=== PATIENT | male | born 1975 | race Caucasian/White ===

== ENCOUNTER 2017-10-04 08:58 | Emergency (ER) | payer OTHER ==
[~2017-10-04] VITALS: Ht 177.8 cm; Wt 68.0 kg
[~2017-10-04 08:58] MED LIST: ALEVE220 M1 PO; ASPIRIN EC325 MG PO; CEPHALEXIN500 MG PO; CHLORHEXIDINE473 ML PO; CYCLOBENZAPRINE10 MG PO; EXCEDRIN MIGRA1 EACH; IBUPROFEN600 MG PO; NO MEDICATIONS; NORCO 5-325 TA1 EACH PO; ROBAXIN-750750 MG PO
[2017-10-04] MEDS ORDERED: TYLENOL EXTRA500 MG PO (09:10)
== END 2017-10-04 09:13 | disposition home or self-care (01) ==
LOC: ED 08:58
DX: M79.604 Pain in right leg (principal); M79.1 Myalgia; M25.551 Pain in right hip

== ENCOUNTER 2019-08-28 21:50 | Emergency (ER) | payer OTHER ==
[~2019-08-28] VITALS: Ht 177.8 cm; Wt 63.5 kg
[~2019-08-28 21:50] MED LIST changes: +IBU400 MG PO; +TRAMADOL HCL50 MG PO; +TYLENOL EXTRA500 MG PO
--- OUTSIDE RECORDS SUMMARY | 2019-08-28 21:54 | XMS ---
PreManage Notification: JUAN JOSE Security Blind Cleaner Events No recent Security Events currently on file CRITERIA MET - Group Notification CARE PROVIDERS There are no care providers on record at this time. Jefe has no Care Guidelines for this patient. Bryson VISIT COUNT (12 MO.) 2 ALYSSA Retana TOTAL 2 NOTE: Visits indicate total known visits. ED/C VISIT TRACKING (12 MO.) 08/28/2019 21:51 ALYSSA Mcdonald [place] TYPE: Emergency COMPLAINT: - RIGHT LEG PAIN 02/20/2019 21:02 ALYSSA Mcdonald [place] TYPE: Emergency COMPLAINT: - LOW BACK PAIN, NO INJURY DIAGNOSES: - Sciatica, right side - Dorsalgia, unspecified - Nicotine dependence, unspecified, uncomplicated - Allergy status to narcotic agent status INPATIENT VISIT TRACKING (12 MO.) No inpatient visits to display in this time frame [email or web address]
[2019-08-28] MEDS ORDERED: VITAMIN B125000 MCG PO (21:58)
[2019-08-28] MEDS ORDERED: PREDNISONE20 MG PO (23:06)
== END 2019-08-28 23:22 | disposition home or self-care (01) ==
LOC: ED 21:50
DX: M54.31 Sciatica, right side (principal); F31.9 Bipolar disorder, unspecified; F17.200 Nicotine dependence, unspecified, uncomplicated; Z88.5 Allergy status to narcotic agent; Z79.899 Other long term (current) drug therapy
CPT/HCPCS: 72100; 73502; 96372; 99283-25; J1885; J7512

== ENCOUNTER 2019-09-05 11:37 | Emergency (ER) | payer OTHER ==
[~2019-09-05] VITALS: Ht 177.8 cm; Wt 63.5 kg
[~2019-09-05 11:37] MED LIST changes: +PREDNISONE20 MG PO; +VITAMIN B125000 MCG PO
--- OUTSIDE RECORDS SUMMARY | 2019-09-05 11:40 | XMS ---
PreManage Notification: JUAN JOSE Security Property Management Coordinator Events No recent Security Events currently on file CRITERIA MET - [facility] - 2 Visits in 30 Days CARE PROVIDERS RYAN GREY [facility] 08/29/2019-Current PHONE: [phone] Jefe has no Care Guidelines for this patient. Bryson VISIT COUNT (12 MO.) 3 [facility] TOTAL 3 NOTE: Visits indicate total known visits. ED/UCC VISIT TRACKING (12 MO.) 09/05/2019 11:38 ALYSSA Mcdonald [place] TYPE: Emergency COMPLAINT: - BACK PAIN, URINE PROBLEM 08/28/2019 21:51 ALYSSA Mcdonald [place] TYPE: Emergency COMPLAINT: - RIGHT LEG PAIN DIAGNOSES: - Sciatica, right side - Other residential (current) drug therapy - Bipolar disorder, unspecified - Nicotine dependence, unspecified, uncomplicated - Allergy status to narcotic agent status - Pain in right leg 02/20/2019 21:02 ALYSSA Mcdonald [place] TYPE: Emergency COMPLAINT: - LOW BACK PAIN, NO INJURY DIAGNOSES: - Sciatica, right side - Dorsalgia, unspecified - Nicotine dependence, unspecified, uncomplicated - Allergy status to narcotic agent status INPATIENT VISIT TRACKING (12 MO.) No inpatient visits to display in this time frame [email or web address]
[2019-09-05] MEDS ORDERED: NORCO 7.5-3251 EACH PO (17:17)
[2019-09-05] MEDS ORDERED: METHYLPREDNISOLO4 M1 PO (17:17)
== END 2019-09-05 17:28 | disposition home or self-care (01) ==
LOC: ED 11:37
DX: M51.27 Other intervertebral disc displacement, lumbosacral region (principal); F17.200 Nicotine dependence, unspecified, uncomplicated; Z88.5 Allergy status to narcotic agent
CPT/HCPCS: 72148; 96372; 99283-25; J1885

== ENCOUNTER 2019-11-06 06:06 | Emergency (ER) | payer OTHER ==
[~2019-11-06] VITALS: Ht 177.8 cm; Wt 63.5 kg
[~2019-11-06 06:06] MED LIST changes: +METHYLPREDNISOLO4 M1 PO; +NORCO 7.5-3251 EACH PO
== END 2019-11-06 06:44 | disposition home or self-care (01) ==
LOC: ED 06:06
DX: S60.221A Contusion of right hand, initial encounter (principal); F17.200 Nicotine dependence, unspecified, uncomplicated; Z88.5 Allergy status to narcotic agent; Z79.899 Other long term (current) drug therapy; X58.XXXA Exposure to other specified factors, initial encounter
CPT/HCPCS: 73130; 99283-25

== ENCOUNTER 2019-12-07 02:40 | Emergency (ER) | payer OTHER ==
[~2019-12-07] VITALS: Ht 177.8 cm; Wt 63.5 kg
--- OUTSIDE RECORDS SUMMARY | ~2019-12-07 | XMS | Encounter Summary ---
Demographics + + + | Address | [address] | | | [place] [address] | + + + | Home Phone | | + + + | Preferred Language | Unknown | + + + | Marital Status | Single | + + + | Adventist Affiliation | Unknown | + + + | Race | Unknown | + + + | Ethnic Group | Unknown | + + + Author + + + | Author | [facility] | | | and [place] | + + + | Organization | [facility] | | | and [place] | + + + | Address | Unknown | + + + | Phone | Unavailable | + + + Support + + +---------+ + | Name | Relationship | Address | Phone | + + +---------+ + | Oliva Diaz | MATT | Unknown | | + + +---------+ + Care Team Providers + +------+ + | Care Belt Sewer Name | Role | Phone | + +------+ + | Omar Oswald MD | PCP | | + +------+ + Reason for Visit + + + | Reason | Comments | + + + | Medication Question | Pain | + + + Encounter Details +--------+ + + + + | Date | Type | Department | Care Team | Description | +--------+ + + + + | // | Telephone | [facility] | Francisco Cannon DO | Medication Question | | 2020 | | NEUROSURGERY [address] | [address] | (Pain) | | | | [address] | [address] | | | | | [place], [place] | [place] [address] | | | | | [address] | [phone] | | | | | [phone] | | | +--------+ + + + + Social History + +-------+ +--------+------+ | Tobacco Use | Types | Packs/Day | Years | Date | | | | | Used | | + +-------+ +--------+------+ | Current Every Day | | 0.5 | | | | Smoker | | | | | + +-------+ +--------+------+ + +---+---+---+ | Smokeless Tobacco: | | | | | Former User | | | | + +---+---+---+ + + + | Sex Assigned at | Date Recorded | | | | + + + | Not on file | | + + + + + + + | Job Start Date | Occupation | Industry | + + + + | Not on file | Not on file | Not on file | + + + + + + + + | Travel History | Travel Start | Travel End | + + + + + + | No recent travel history available. | + + documented as of this encounter Plan of Treatment +--------+ + + + + | Date | Type | Specialty | Care Team | Description | +--------+ + + + + | 12/23/ | Virtual | Neurosurgery | Rowdy Gutierrez, | | | 2019 | Office | | TEMI [address]AVEZ | | | | Visit | | [address] | | | | | | [place] [address] | | | | | | [phone] | | | | | | | | +--------+ + + + + documented as of this encounter Visit Diagnoses Not on filedocumented in this encounter"
--- OUTSIDE RECORDS SUMMARY | ~2019-12-07 | XMS | Encounter Summary ---
Demographics + + + | Address | [address] | | | [place] [address] | + + + | Home Phone | | + + + | Preferred Language | Unknown | + + + | Marital Status | Single | + + + | Rastafarian Affiliation | Unknown | + + + | Race | Unknown | + + + | Ethnic Group | Unknown | + + + Author + + + | Author | [facility] | | | and [place] | + + + | Organization | [facility] | | | and [...] Team Providers + +------+ + | Care Antique Automobiles Repairer Name | Role | Phone | + +------+ + | Omar Oswald MD | PCP | | + +------+ + Encounter Details +--------+ + + + + | Date | Type | Department | Care Team | Description | +--------+ + + + + | 09/18/ | Clinical | [facility] | | DDD (degenerative | | 2020 | Support | NEUROSURGERY [address] | | disc disease), | | | | [address] | | lumbar; Lumbar disc | | | | [place], [place] | | herniation with | | | | [address] | | radiculopathy; | | | | [phone] | | Lumbar facet | | | | | | arthropathy; Lumbar | | | | | | myelopathy (HCC); | | | | | | Progressive | | | | | | neurological | | | | | | deficit; Weakness of | | | | | | lower extremity, | | | | | | unspecified | | | | | | laterality | +--------+ + + + + Social [...] + + documented as of this encounter Last Filed Vital Signs + +---------+ + + | Vital Sign | Reading | Time Taken | Comments | + +---------+ + + | Blood Pressure | 141/106 | 09/19/2019 2:33 PM | | | | | PST | | + +---------+ + + | Pulse | 84 | 09/19/2019 2:33 PM | | | | | PST | | + +---------+ + + | Temperature | - | - | | + +---------+ + + | Respiratory Rate | - | - | | + +---------+ + + | Oxygen Saturation | - | - | | + +---------+ + + | Inhaled Oxygen | - | - | | | Concentration | | | | + +---------+ + + | Weight | - | - | | + +---------+ + + | Height | - | - | | + +---------+ + + | Body Mass Index | - | - | | + +---------+ + + documented in this encounter Patient Instructions Patient Instructions Leti Montes RN - 09/19/2019 2:15 PM PSTPreOp Instructions: -Discontinue aspirin, coumadin, heparin, etc 5-7 days before surgery -Discontinue any NSAIDs, such as ibuprofen and aleve 5-7 days before surgery. -Take prescribed medications as directed for pain management. -Don't bend, twist, or lift anything greater than 5-10 lbs. -Take pain medication and muscle relaxer 1 hour apart, taking together increases drowsiness which increases risk of falls. -Reminder to go to pre-op appt at hospital, and take consent form. If you have any questions or concerns feel free to call us at [phone]. documented in this encounter Progress Notes Leti Montes RN - 09/19/2019 2:15 PM PSTPatient presents for pre-op visit re: their sc heduled MIS laminectomy, medial facetectomy, foraminotomy, possible microdiscectomy L5-S1, p ossible adjacent levels, right sided approach on 09/27/19. Patient reports pre-op symptoms of chronic back pain that now radiates down right S1 dermatomal region with right foot weaknes s. Surgical informed consent signed by patient and witnessed per Dr. Cannon's instructions. Patient and father present for this appointment. Pre-op and post-op instructions reviewed t o include: activity and restrictions, medications - stop NSAID's on 09/20/19, may resume 1 we ek post-op, diet - increase fluids and fiber intake, post-op wound care, when to call the do ctor. Advised patient to take pain medication and muscle relaxer 1 hour apart, taking togeth er increases drowsiness and risk of falls. Questions were addressed, patient and father adrien balized understanding of given instruction. Patient was sent to [facility] for their scheduled pre-admit appointment, anesthesia consult, lab draw, EKG and chest xray. Orders entered per Dr. Cannon's preference and hospital guideline s. Patient was given an appointment reminder for their first post-op visit on 10/11/19 @ 1300 a nd instructed to call in the interim with any problems or concerns. documented in this encounter Plan of Treatment +--------+ + + + + | Date | Type | Specialty | Care Team | Description | +--------+ + + + + | 12/23/ | Virtual | Neurosurgery | Rowdy Gutierrez, | | 2019 | Office | | LICENSED LIFE AND HEALTH AGENT [address] | | | | Visit | | [address] | | | | | | [place] [address] | | | | | | [phone] | | | | | | | | +--------+ + + + + documented as of this encounter Visit Diagnoses + + | Diagnosis | + + | DDD (degenerative disc disease), lumbar Degeneration of lumbar or lumbosacral | | intervertebral disc | + + | Lumbar disc herniation with radiculopathy Displacement of lumbar intervertebral disc | | without myelopathy | + + | Lumbar facet arthropathy Lumbosacral spondylosis without myelopathy | + + | Lumbar myelopathy (HCC) Spondylosis with myelopathy, lumbar region | + + | Progressive neurological deficit Other symptoms involving nervous and musculoskeletal | | systems | + + | Weakness of lower extremity, unspecified laterality | + + documented in this encounter"
--- OUTSIDE RECORDS SUMMARY | ~2019-12-07 | XMS | Encounter Summary ---
Demographics + + + | Address | [address] | | | [place] [address] | + + + | Home Phone | | + + + | Preferred Language | Unknown | + + + | Marital Status | Single | + + + | Alevism Affiliation | Unknown | + + + | Race | Unknown | + + + | Ethnic Group | Unknown | + + + Author + + + | Author | [facility] | | | and [place] | + + + | Organization | [facility] | | | and [place] [...] Team Providers + +------+ + | Care Survey Superintendent Name | Role | Phone | + +------+ + PCP | Unavailable | + +------+ + Encounter Details +--------+ + + + + | Date | Type | Department | Care Team | Description | +--------+ + + + + | 02/11/ | Hospital | [facility] | Amy Baeza MD | | | 2008 | Encounter | [facility] | [address] | | | | | [place] [address] | [place], [place] | | | | | [address] | [address] | | | | | [place] | | | | | | [address] | | | | | | [phone] | | | +--------+ + + + + Social History + +-------+ +--------+------+ | Tobacco Use | Types | Packs/Day | Years | Date | | | | | Used | | + +-------+ +--------+------+ | Never Assessed | | | | | + +-------+ +--------+------+ + + + | Sex Assigned at [...] B | | | | | | [place] [address] | | | | | | [phone] | | | | | | | | +--------+ + + + + documented as of this encounter Visit Diagnoses Not on filedocumented in this encounter"
--- OUTSIDE RECORDS SUMMARY | ~2019-12-07 | XMS | Encounter Summary ---
Demographics + + + | Address | [address] | | | [place] [address] | + + + | Home Phone | | + + + | Preferred Language | Unknown | + + + | Marital Status | Single | + + + | Sikh Affiliation | Unknown | + + + | Race | Unknown | + + + | Ethnic Group | Unknown | + + + Author + + + | Author | [facility] | | | and [place] | + + + | Organization | [facility] | | | and [place] | [...] Team Providers + +------+ + | Care Manager Contact Name | Role | Phone | + +------+ + PCP | Unavailable | + +------+ + Encounter Details +--------+ + + + + | Date | Type | Department | Care Team | Description | +--------+ + + + + | 01/30/ | Hospital | [facility] | Wicho Maharaj MD | | | 2003 | Encounter | [facility] | [address] [facility] | | | | | EMERGENCY CENTER | [place], [place] | | | | | [address] | [address] | | | | | [place], [place] | [phone] | | | | | [address] | | | | | | [phone] | | | +--------+ + + + [...] B | | | | | | [place] [address] | | | | | | [phone] | | | | | | | | +--------+ + + + + documented as of this encounter Visit Diagnoses Not on filedocumented in this encounter"
--- OUTSIDE RECORDS SUMMARY | ~2019-12-07 | XMS | Encounter Summary ---
Demographics + + + | Address | [address] | | | [place] [address] | + + + | Home Phone | | + + + | Preferred Language | Unknown | + + + | Marital Status | Single | + + + | Bahai Affiliation | Unknown | + + + | Race | Unknown | + + + | Ethnic Group | Unknown | + + + Author + + + | Author | [facility] | | | and [place] | + + + | Organization | [facility] | | | and [place] [...] Team Providers + +------+ + | Care Tube Washer Name | Role | Phone | + +------+ + | Omar Oswald MD | PCP | | + +------+ + Reason for Visit +---------+ + | Reason | Comments | +---------+ + | Post-Op | post op #1 | +---------+ + Surgery OP (Routine) + +--------+ + + + + | Status | Reason | Specialty | Diagnoses / | Referred By | Referred To | | | | | Procedures | Contact | Contact | + +--------+ + + + + | Authorized | | Neurosurgery | Diagnoses | [place], | [place], | | | | | Other | Francisco, DO | DO Francisco | | | | | intervertebr | [address] | | | | | al disc | [address] | [address] | | | | | degeneration | [address]IVE [address] | [address] | | | | | , lumbar | B | [place], [place] | | | | | region | [place], | [address] | | | | | | [place] [address] | Phone: | | | | | | Phone: | [phone] | | | | | | [phone] | Fax: | | | | | | Fax: | [phone] | | | | | | [phone] | | + +--------+ + + + + Encounter Details +--------+ + + + + | Date | Type | Department | Care Team | Description | +--------+ + + + + | 10/10/ | Virtual | [facility] | Rowdy Gutierrez, | Status post | | 2020 | Office | NEUROSURGERY [address] | NETWORK TECHNICAL ANALYST [address] | laminectomy (Primary | | | Visit | [address] | [address] | Dx); DDD | | | | [place], [place] | [place] [address] | (degenerative disc | | | | [address] | [phone] | disease), lumbar; | | | | [phone] | | Lumbar disc | | | | | | herniation with | | | | | | radiculopathy; | | | | | | Lumbar facet | | | | | | arthropathy | +--------+ + + + + Social History + + + +--------+------+ | Tobacco Use | Types | Packs/Day | Years | Date | | | | | Used | | + + + +--------+------+ | Current Every Day | Cigarettes | 0.5 | | | | Smoker | | | | | + + + +--------+------+ + +---+---+---+ | Smokeless Tobacco: | | | | | Former User | | | | + +---+---+---+ + + +---------+ + | Alcohol Use | Drinks/Week | oz/Week | Comments | + + +---------+ + | Yes | 2 Cans of beer 0 | 2.0 | | | | Glasses of wine 0 | | | | | Shots of liquor | | | + + +---------+ + + + + | Sex Assigned at [...] this encounter Last Filed Vital Signs + + + + + | Vital Sign | Reading | Time Taken | Comments | + + + + + | Blood Pressure | - | - | | + + + + + | Pulse | - | - | | + + + + + | Temperature | - | - | | + + + + + | Respiratory Rate | - | - | | + + + + + | Oxygen Saturation | - | - | | + + + + + | Inhaled Oxygen | - | - | | | Concentration | | | | + + + + + | Weight | 62.1 kg (137 lb) | 10/11/2019 1:02 PM | | | | | PDT | | + + + + + | Height | 175.3 cm (5' 9") | 10/11/2019 1:02 PM | | | | | PDT | | + + + + + | Body Mass Index | 20.23 | 10/11/2019 1:02 PM | | | | | PDT | | + + + + + documented in this encounter Progress Notes Rowdy Gutierrez ARNP - 10/11/2019 1:00 PM PDTThis exam was initially conducted via a secu re telephonic session. Service was provided telephone visit start time 1:04 PM end time 1:14 PM Total time (in minutes) including non [id number]-cr-[id number] time (reviewing records, documentation, etc..) 15 minutes You have chosen to receive care through the use of telemedicine. Telemedicine enables [facility] care providers at different locations to provide safe, effective and convenient care throu gh the use of technology. As with any health care service, there are risks associated with t he use of telemedicine, including equipment failure, poor image resolution and information s ecurity issues. Do you understand the risks and benefits of telemedicine as I have explained them to you? " Yes" Have your questions regarding telemedicine been answered? "Yes" Patient is currently at home Do you consent to the use of telemedicine in your medical care today? Yes. Answer: Patient confirms they are located in a state where Rowdy Galarza ARNP is lice nsed. Neurosurgery: Post Operative Visit Subjective: The patient is here for their first postoperative appointment. The patient is S/P LAMINECT LALIT MINIMALLY INVASIVE L5/S1 Minimally invasive lumbar laminectomy, medial facetectomy, fora minotomy and possible microdiskectomy at Lumbar 5 to Sacral 1. right sided approach for bila teral decompression done on 09/27/[address] Cannon. The patient reports no wound problems or fevers. The preoperative symptoms are improved. He reports that the pain that was previously radiating down the right leg is now gone. He d enies any numbness/tingling over the lower extremities at this time. Pain is currently 3/10 . He is trying to walk a little more now and is now walking outside the house. Using pain medications?: Yes, hydrocodone 10-325 mg, once a day. Refills needed?: No Objective: Deferred in place of telephone visit. Imaging: I reviewed both the imaging studies and the available radiology reports No new imaging to review Assessment/Plan: S/P LAMINECTOMY MINIMALLY INVASIVE L5/S1 Minimally invasive lumbar laminectomy, medial face tectomy, foraminotomy and possible microdiskectomy at Lumbar 5 to Sacral 1. right sided appr oac for bilateral decompression done on 09/27/[address] Cannon, doing well. - We discussed postop restrictions including lifting and activity. - The patient reports no swelling, redness or new drainage over the incision site - The patient will follow up in 4 weeks without xrays. We can change this visit to a virtu al visit if COVID-19 concerns are still significant at that time. - The patient was given an appointment reminder. - The patient was reminded to contact the office in the interim if there are any problems o r concerns. TEMI Clarke CC: MD Rowdy Lin ARNP has created this entry using [employer] Recognition [employer] e and [employer] macros. The entry has been reviewed and there may still exist sound alike word e rrors. documented in this encounter Plan of Treatment +--------+ + + + + | Date | Type | Specialty | Care Team | Description | +--------+ + + + + | 12/23/ | Virtual | Neurosurgery | Rowdy Gutierrez, | | | 2019 | Office | | NETWORK TECHNICAL ANALYST [address] | | | | Visit | | [address] | | | | | | [place] [address] | | | | | | [phone] | | | | | | | | +--------+ + + + + documented as of this encounter Visit Diagnoses + + | Diagnosis | + + | Status post laminectomy - Primary Other postprocedural status | + + | DDD (degenerative disc disease), lumbar Degeneration of lumbar or lumbosacral | | intervertebral disc | + + | Lumbar disc herniation with radiculopathy Displacement of lumbar intervertebral disc | | without myelopathy | + + | Lumbar facet arthropathy Lumbosacral spondylosis without myelopathy | + + documented in this encounter
--- OUTSIDE RECORDS SUMMARY | ~2019-12-07 | XMS | Encounter Summary ---
Demographics + + + | Address | [address] | | | [place] [address] | + + + | Home Phone | | + + + | Preferred Language | Unknown | + + + | Marital Status | Single | + + + | Jain Affiliation | Unknown | + + + | Race | Unknown | + + + | Ethnic Group | Unknown | + + + Author + + + | Author | [facility] | | | and [place] | + + + | Organization | [facility] | | | and [place] | [...] Team Providers + +------+ + | Care Shoe Repair Supervisor Name | Role | Phone | + +------+ + | Omar Oswald MD | PCP | | + +------+ + Reason for Visit +--------+ + | Reason | Comments | +--------+ + | Other | schedule | +--------+ + Encounter Details +--------+ + + + + | Date | Type | Department | Care Team | Description | +--------+ + + + + | 11/11/ | Telephone | [facility] | Rowdy Gutierrez, | Other (schedule ) | | 2020 | | NEUROSURGERY [address] | REGISTERED DENTAL ASSISTANT [address]DA [address] | | | | | [address] | [address] | | | | | [place], [place] | [place] [address] | | | | | [address] | [phone] | | | | | [phone] | | | +--------+ + + + [...] | | | Visit | | [address] | | | | | | [place] [address] | | | | | | [phone] | | | | | | | | +--------+ + + + + documented as of this encounter Visit Diagnoses Not on filedocumented in this encounter"
--- OUTSIDE RECORDS SUMMARY | ~2019-12-07 | XMS | Encounter Summary ---
Demographics + + + | Address | [address] | | | [place] [address] | + + + | Home Phone | | + + + | Preferred Language | Unknown | + + + | Marital Status | Single | + + + | Shinto Affiliation | Unknown | + + + | Race | Unknown | + + + | Ethnic Group | Unknown | + + + Author + + + | Author | [facility] | | | and [place] | + + + | Organization | [facility] | | | and [...] Team Providers + +------+ + | Care Retail Store Manager Name | Role | Phone | + +------+ + | Omar Oswald MD | PCP | | + +------+ + Reason for Visit + + + | Reason | Comments | + + + | Appointment | Question | + + + Encounter Details +--------+ + + + + | Date | Type | Department | Care Team | Description | +--------+ + + + + | 03/23/ | Telephone | [facility] | Rowdy Gutierrez, | Appointment | | 2020 | | NEUROSURGERY [address] | COMPRESSED GASES TESTER [address] | (Question) | | | | [address] | [address] | | | | | [place], [place] | [place] [address] | | | | | [address] | [phone] | | | | | [phone] | | | +--------+ + + + [...] | 2019 | Office | | TEMI [address] | | | | Visit | | [address] | | | | | | [place] [address] | | | | | | [phone] | | | | | | | | +--------+ + + + + documented as of this encounter Visit Diagnoses Not on filedocumented in this encounter"
--- OUTSIDE RECORDS SUMMARY | ~2019-12-07 | XMS | Encounter Summary ---
Demographics + + + | Address | [address] | | | [place] [address] | + + + | Home Phone | | + + + | Preferred Language | Unknown | + + + | Marital Status | Single | + + + | Moravian Affiliation | Unknown | + + + | Race | Unknown | + + + | Ethnic Group | Unknown | + + + Author + + + | Author | [facility] | | | and [place] | + + + | Organization | [facility] [...] Team Providers + +------+ + | Care Nurse Obgyn Name | Role | Phone | + +------+ + | Omar Oswald MD | PCP | | + +------+ + Reason for Visit +---------+ + | Reason | Comments | +---------+ + | Post-Op | MIS LAMI post op #2 | +---------+ + Surgery OP (Routine) + +--------+ + + + + | Status | Reason | Specialty | Diagnoses / | Referred By | Referred To | | | | | Procedures | Contact | Contact | + +--------+ + + + + | Authorized | | Neurosurgery | Diagnoses | K[place], | [place], | | | | | Other | Francisco, DO | Francisco, DO | | | | | intervertebr | [address] | | | | | al disc | [address] | [address] | | | | | degeneration | DRIVE SU[address] | B | | | | | , lumbar | B | [place], [place] | | | | | region | [place], | [address] | | | | | | [place] [address] | Phone: | | | | | | Phone: | [phone] | | | | | | [phone] | Fax: | | | | | | Fax: | [phone] | | | | | | [phone] | | + +--------+ + + + + Encounter Details +--------+ + + + + | Date | Type | Department | Care Team | Description | +--------+ + + + + | 04/27/ | Virtual | [facility] | Hira Gutierrezgladis Hutchison, | Status post | | 2020 | Office | NEUROSURGERY [address] | SPECIAL SYSTEMS TECHNICIAN [address] | laminectomy (Primary | | | Visit | [address] | [address] | Dx); DDD | | | | [place], [place] | [place] [address] | (degenerative disc | | | | [address] | [phone] | disease), lumbar | | | | [phone] | | | +--------+ + + + [...] + + documented as of this encounter Progress Notes Rowdy Gutierrez, SPECIAL SYSTEMS TECHNICIAN - 11/12/2019 2:40 PM PDTThis exam was initially conducted via a [email or web address] 256-bit AES encrypted bidirectional video session. Service was provided [id number] with the patient via interactive videoconferencing Video start time 1:49 PM Video end time 2:04 PM Total time (in minutes) including non [id number] time (reviewing records, documentation, etc..) 15 minutes You have chosen to receive care through the use of telemedicine. Telemedicine enables premier health care providers at different locations to provide [...] your questions regarding telemedicine been answered? "Yes" Participant is currently at {Participant's location home Do you consent to the use of telemedicine in your medical care today? Yes. Last question, I need to confirm where are you physically located right now? [place], [place] Answer: Patient confirms they are located in a state where I, Rowdy C. Matt, SPECIAL SYSTEMS TECHNICIAN am lic ensed. Neurosurgery: Post Operative Visit Subjective: The patient is here for their second postoperative appointment. The patient is S/P LAMINEC ROSALVA MINIMALLY INVASIVE L5/S1 Minimally invasive lumbar laminectomy, medial facetectomy, for aminotomy and possible microdiskectomy at Lumbar 5 to Sacral 1. right sided approach for roel ateral decompression done on 09/27/[address] Cannon. The patient reports no wound problems or fevers. The preoperative symptoms are improved. He reports that the pain that was previously radiating down the right leg is now gone. He d enies any numbness/tingling over the lower extremities at this time. He has been using his chain saw with little pain. Pain is currently 5/10. He is trying to walk a little more now and is now walking outside the house. Using pain medications?: Yes, hydrocodone 10-325 mg, once a day. Refills needed?: No Objective: General Cooperative Alert Well groomed Well appearing Resp Respiratory effort Skin Incision is healing nicely. No redness, swelling or new drainage. Neuro Oriented x3 Psych Normal speech Normal Cognition Thought content normal Normal judgement Imaging: I reviewed both the imaging studies and the available radiology reports No new imaging to review Assessment/Plan: S/P LAMINECTOMY MINIMALLY INVASIVE L5/S1 Minimally invasive lumbar laminectomy, medial face tectomy, foraminotomy and possible microdiskectomy at Lumbar 5 to Sacral 1. right sided appr oach for bilateral decompression done on 09/27/[address] Cannon, doing well. - We discussed postop restrictions including slowly increasing lifting and activity. He wa s instructed to only do age appropriate activities. - The patient has no swelling, redness or new drainage over the incision site - The patient will follow up in 6 weeks without xrays. We can change this visit to a virtu al visit if COVID-19 concerns are still significant at that time. - The patient was given an appointment reminder. - The patient was reminded to contact the office in the interim if there are any problems o r concerns. TEMI Clarke CC: MD Rowdy Lin ARNP has created this entry using [employer] and [employer] macros. The entry has been reviewed and there may still exist sound alike word e rrcynthia. documented in this encounter Plan of Treatment +--------+ + + + + | Date | Type | Specialty | Care Team | Description | +--------+ + + + + | 12/23/ | Virtual | Neurosurgery | Rowdy Gutierrez, | | | 2019 | Office | | TEMI [address] | | | | Visit | | [facility] | | | | | | [place] [address] | | | | | | [phone] | | | | | | | | +--------+ + + + + documented as of this encounter Visit Diagnoses + + | Diagnosis | + + | Status post laminectomy - Primary Other postprocedural status | + + | DDD (degenerative disc disease), lumbar Degeneration of lumbar or lumbosacral | | intervertebral disc | + + documented in this encounter
--- OUTSIDE RECORDS SUMMARY | ~2019-12-07 | XMS | Encounter Summary ---
Demographics + + + | Address | [address] | | | [place] [address] | + + + | Home Phone | | + + + | Preferred Language | Unknown | + + + | Marital Status | Single | + + + | Jehovah'S Witness Affiliation | Unknown | + + + | Race | Unknown | + + + | Ethnic Group | Unknown | + + + Author + + + | Author | [facility] | | | and [place] | + + + | Organization | [facility] | | | and [place] [...] Team Providers + +------+ + | Care Fairing Man Name | Role | Phone | + +------+ + | Omar Oswald MD | PCP | | + +------+ + Reason for Visit + + + | Reason | Comments | + + + | Appointment | | + + + Encounter Details +--------+ + + + + | Date | Type | Department | Care Team | Description | +--------+ + + + + | 09/11/ | Telephone | [facility] | Francisco Cannon | Appointment | | 2020 | | NEUROSURGERY [address] | [address] | | | | | [address] | [address] | | | | | [place], [place] | [place] [address] | | | | | [address] | [phone] | | | | | [phone] | | | +--------+ + + + [...] B | | | | | | [place] [address] | | | | | | [phone] | | | | | | | | +--------+ + + + + documented as of this encounter Visit Diagnoses Not on filedocumented in this encounter"
--- OUTSIDE RECORDS SUMMARY | ~2019-12-07 | XMS | Encounter Summary ---
Demographics + + + | Address | [address] | | | [place] [address] | + + + | Home Phone | | + + + | Preferred Language | Unknown | + + + | Marital Status | Single | + + + | Sabianism Affiliation | Unknown | + + + | Race | Unknown | + + + | Ethnic Group | Unknown | + + + Author + + + | Author | [facility] | | | and [place] | + + + | Organization | [facility] | | | and [place] [...] Team Providers + +------+ + | Care Correctional Officer Captain Name | Role | Phone | + +------+ + | Omar Oswald MD | PCP | | + +------+ + Reason for Visit Auth/Cert +--------+--------+ + + + + | Status | Reason | Specialty | Diagnoses / | Referred By | Referred To | | | | | Procedures | Contact | Contact | +--------+--------+ + + + + | | | | Diagnoses | | | | | | | DDD | | | | | | | (degenerativ | | | | | | | e disc | | | | | | | disease), | | | | | | | lumbar | | | | | | | Lumbar disc | | | | | | | herniation | | | | | | | with | | | | | | | radiculopath | | | | | | | y Lumbar | | | | | | | facet | | | | | | | arthropathy | | | | | | | Weakness of | | | | | | | lower | | | | | | | extremity, | | | | | | | unspecified | | | | | | | laterality | | | | | | | Lumbar | | | | | | | myelopathy | | | | | | | ([facility]) | | | | | | | Progressive | | | | | | | neurological | | | | | | | deficit | | | | | | | | | | | | | | Procedures | | | | | | | LAMINECTOMY | | | | | | | MINIMALLY | | | | | | | INVASIVE | | | +--------+--------+ + + + + Encounter Details +--------+ + + + + | Date | Type | Department | Care Team | Description | +--------+ + + + + | 09/26/ | Hospital | [facility] | Francisco Cannon DO | Weakness of lower | | 2020 | Encounter | [facility] | [address] | extremity, | | | | CARE [address]LO[address] | unspecified | | | | [address] | [place] [address] | laterality | | | | [place], [place] | [phone] | | | | | [address] | | | | | | [phone] | | | +--------+ + + + [...] + + + | Blood Pressure | 132/75 | 09/27/2019 1:41 PM | | | | | PDT | | + + + + + | Pulse | 76 | 09/27/2019 1:41 PM | | | | | PDT | | + + + + + | Temperature | 36.3 C (97.3 F) | 09/27/2019 1:41 PM | | | | | PDT | | + + + + + | Respiratory Rate | 18 | 09/27/2019 1:41 PM | | | | | PDT | | + + + + + | Oxygen Saturation | 96% | 09/27/2019 1:41 PM | | | | | PDT | | + + + + + | Inhaled Oxygen | - | - | | | Concentration | | | | + + + + + | Weight | 62.3 kg (137 lb 5.6 | 09/27/2019 8:29 AM | | | | oz) | PDT | | + + + + + | Height | 175.3 cm (5' 9") | 09/27/2019 8:29 AM | | | | | PDT | | + + + + + | Body Mass Index | 20.28 | 09/27/2019 8:29 AM | | | | | PDT | | + + + + + documented in this encounter Discharge Instructions Instructions Luther Ly RN - 09/27/2019 Discharge Instructions for Laminectomy A surgeon removed a piece of bone from the back of from your spine called the lamina. This procedure is called laminectomy. Its purpose is to relieve the pressure caused by a bulging disk, ligament, cyst, tumor, or bone that painfully pushes on a nerve. Below are some care t ips you can follow at home to help you feel better. Activity Don't push, pull, bend, or twist forweek(s) after your surgery. Don t sit for more thanminutes at a time. And when you aren t sitting, lie down or walk. Walk as much as you can. You can walk outside or inside. If you use a treadmill, walk at a slow speed, with no incline. Going up and down stairs is also good for you, so do it as much as possible.Don t li ft anything heavier thanuntil your doctor says otherwise. Don t drive forweeks after your surgery. And never drive if you are taking opioid pain medication. Let others drive you instead. And limit car trips tominutes at a time. Have someone remove electrical cords, throw rugs, and anything else in your home that ma y cause you to fall. Arrange your household to keep the items you need handy. Home care Take your medicine exactly as directed by your doctor. Check your incision daily for redness, tenderness, or drainage. Don t soak in a bathtub, hot tub, or pool until your doctor says it s OK. Waitday(s) after your surgery to start showering. Then shower as needed. Carefully w juan your incision with soap and water. Gently pat the incision dry. Don t rub it, or apply creams or lotions. Follow-up Make a follow-up appointment as directed by your doctor. Make an appointment to have sutures or vicky removed aboutweeks after surgery. Call 911 When to call your healthcare provider Call right away if you have any of the following: Chest pain Shortness of breath A severe headache Trouble controlling your bowels or bladder Calf pain, swelling, or redness Call your healthcare provider right away if you have any of the following: Increased pain, redness, or drainage from the incision Fever of(C) or higher, or as directed by your healthcare provider Shaking chills New pain, weakness, warmth, or numbness in your legs Foot, ankle, or calf swelling that is not relieved by elevating your feet Date Last Reviewed: 2940-5035 [employer]. [address] [place] [address]. All righ ts reserved. This information is not intended as a substitute for professional medical care. Always follow your healthcare professional's instructions. Acetaminophen; Hydrocodone tablets or capsules Brand Names: Anexsia, Lorcet, Lorcet HD, Lorcet Plus, Lortab, [place], Verdrocet, Vicodin, Vi codin ES, Vicodin HP, Xodol What is this medicine? ACETAMINOPHEN; HYDROCODONE (a set a ELDON isaiah fen; dacia droe KOE done) is a pain reliever. It is used to treat moderate to severe pain. How should I use this medicine? Take this medicine by mouth with a glass of water. Follow the directions on the prescriptio n label. You can take it with or without food. If it upsets your stomach, take it with food. Do not take your medicine more often than directed. A special MedGuide will be given to you by the pharmacist with each prescription and refill . Be sure to read this information carefully each time. Talk to your medical anthropologist regarding the use of this medicine in children. Special care may be needed. What side effects may I notice from receiving this medicine? Side effects that you should report to your doctor or health director of managed care as soon as p ossible: allergic reactions like skin rash, itching or hives, swelling of the face, lips, or tong ue breathing problems confusion redness, blistering, peeling or loosening of the skin, including inside the mouth signs and symptoms of low blood pressure like dizziness; feeling faint or lightheaded, f alls; unusually weak or tired trouble passing urine or change in the amount of urine yellowing of the eyes or skin Side effects that usually do not require medical attention (report to your doctor or health director of managed care if they continue or are bothersome): constipation dry mouth nausea, vomiting tiredness What may interact with this medicine? This medicine may interact with the following medications: alcohol antiviral medicines for HIV or AIDS atropine antihistamines for allergy, cough and cold certain antibiotics like erythromycin, clarithromycin certain medicines for anxiety or sleep certain medicines for bladder problems like oxybutynin, tolterodine certain medicines for depression like amitriptyline, fluoxetine, sertraline certain medicines for fungal infections like ketoconazole and itraconazole certain medicines for Parkinson's disease like benztropine, trihexyphenidyl certain medicines for seizures like carbamazepine, phenobarbital, phenytoin, primidone certain medicines for stomach problems like dicyclomine, hyoscyamine certain medicines for travel sickness like scopolamine general anesthetics like halothane, isoflurane, methoxyflurane, propofol ipratropium local anesthetics like lidocaine, pramoxine, tetracaine MAOIs like Carbex, Eldepryl, Marplan, Nardil, and Parnate medicines that relax muscles for surgery other medicines with acetaminophen other narcotic medicines for pain or cough phenothiazines like chlorpromazine, mesoridazine, prochlorperazine, thioridazine rifampin What if I miss a dose? If you miss a dose, take it as soon as you can. If it is almost time for your next dose, ta ke only that dose. Do not take double or extra doses. Where should I keep my medicine? Keep out of the reach of children. This medicine can be abused. Keep your medicine in a saf e place to protect it from theft. Do not share this medicine with anyone. Selling or giving away this medicine is dangerous and against the law. Store at room temperature between 15 and 30 degrees C (59 and 86 degrees F). This medicine may cause harm and if it is taken by other adults, children, or pets. R eturn medicine that has not been used to an official disposal site. Contact the [facility] at [phone] or your [facility] government to find a site. If you cannot return the medicine, flush it down the toilet. Do not use the medicine after the expiration date. What should I tell my health care provider before I take this medicine? They need to know if you have any of these conditions: brain tumor Crohn's disease, inflammatory bowel disease, or ulcerative colitis drug abuse or addiction head injury heart or circulation problems if you often drink alcohol kidney disease or problems going to the bathroom liver disease lung disease, asthma, or breathing problems an unusual or allergic reaction to acetaminophen, hydrocodone, other opioid analgesics, other medicines, foods, dyes, or preservatives or trying to get breast-feeding What should I watch for while using this medicine? Tell your doctor or health director of managed care if your pain does not go away, if it gets wors e, or if you have new or a different type of pain. You may develop tolerance to the medicine . Tolerance means that you will need a higher dose of the medicine for pain relief. Toleranc e is normal and is expected if you take the medicine for a long time. Do not suddenly stop taking your medicine because you may develop a severe reaction. Your b kathleen becomes used to the medicine. This does NOT mean you are addicted. Addiction is a behavi or related to getting and using a drug for a non-medical reason. If you have pain, you have a medical reason to take pain medicine. Your doctor will tell you how much medicine to take. If your doctor wants you to stop the medicine, the dose will be slowly lowered over time to avoid any side effects. There are different types of narcotic medicines (opiates). If you take more than one type a t the same time or if you are taking another medicine that also causes drowsiness, you may h ave more side effects. Give your health care provider a list of all medicines you use. Your doctor will tell you how much medicine to take. Do not take more medicine than directed. Prateek ramsey emergency for help if you have problems breathing or unusual sleepiness. Do not take other medicines that contain acetaminophen with this medicine. Always read labe dipak carefully. If you have questions, ask your doctor or pharmacist. If you take too much acetaminophen get medical help right away. Too much acetaminophen can be very dangerous and cause liver damage. Even if you do not have symptoms, it is important to get help right away. You may get drowsy or dizzy. Do not drive, use machinery, or do anything that needs mental alertness until you know how this medicine affects you. Do not stand or sit up quickly, henry cially if you are an older patient. This reduces the risk of dizzy or fainting spells. Alcoh ol may interfere with the effect of this medicine. Avoid alcoholic drinks. The medicine will cause constipation. Try to have a bowel movement at least every 2 to 3 da ys. If you do not have a bowel movement for 3 days, call your doctor or health care professi onal. Your mouth may get dry. Chewing sugarless gum or sucking hard candy, and drinking plenty of water may help. Contact your doctor if the problem does not go away or is severe. NOTE:This sheet is a summary. It may not cover all possible information. If you have questi ons about this medicine, talk to your doctor, pharmacist, or health care provider. Copyright 2019 [employer] documented in this encounter Medications at Time of Discharge + + + +---------+ + + | Medication | Sig | Dispensed | Refills | Start | End Date | | | | | | Date | | + + + +---------+ + + | | Take 1 tablet by | 56 | 0 | 09/27/19 | | | HYDROcodone-acetamin | mouth every 6 hours | tablet | | 20 | 0 | | ophen (NORCO) 10-325 | as needed for Pain | | | | | | mg per tablet | for up to 14 days. | | | | | | | If minimal pain ok | | | | | | | to cut in half and | | | | | | | take one half | | | | | | | tablet.Re: Post | | | | | | | operative painExempt | | | | | + + + +---------+ + + documented as of this encounter Plan of Treatment +--------+ + + + + | Date | Type | Specialty | Care Team | Description | +--------+ + + + + | 12/23/ | Virtual | Neurosurgery | Rowdy Gutierrez, | | | 2020 | Office | | [facility] [facility] [address] | | | | Visit | | [address] | | | | | | [place] [address] | | | | | | [phone] | | | | | | | | +--------+ + + + + documented as of this encounter Procedures + +--------+ + + + | Procedure Name | Priori | Date/Time | Associated Diagnosis | Comments | | | ty | | | | + +--------+ + + + | CASS Hutchison ARM | Routin | 09/27/2019 | | Results for this | | | e | 10:15 AM | | procedure are in the | | | | PDT | | results section. | + +--------+ + + + | LAMINECTOMY | | 09/27/2019 | DDD (degenerative | | | MINIMALLY INVASIVE | | 8:26 AM | disc disease), | | | | | PDT | lumbar Lumbar disc | | | | | | herniation with | | | | | | radiculopathy | | | | | | Lumbar facet | | | | | | arthropathy | | | | | | Weakness of lower | | | | | | extremity, | | | | | | unspecified | | | | | | laterality Lumbar | | | | | | myelopathy (HCC) | | | | | | Progressive | | | | | | neurological deficit | | + +--------+ + + + +---+--------+ | | | | | Specia | | | l | | | Needs | | | 2nd | | | case | | | 90 | | | minute | | | s | +---+--------+ documented in this encounter Results CASS Ayers (09/27/2019 10:15 AM PDT) + + | Specimen | + + | | + + + + + | Impressions | Performed At | + + + | Fluoroscopic service for procedure. Signed by: Essence, | [facility] | | Joseph Sun Date/Time: 09/27/2019 10:37 AM | | + + + + + + | Narrative | Performed At | + + + | FLUOROSCOPY C ARM CLINICAL INFORMATION: laminectomy L5-S1 | [facility] | | FINDINGS: Fluoro Time: 4 seconds. Number of images: 1 Air Kerma: | | | 2.29 mGy. | | + + + + + | Procedure Note | + + | González Campbell Results In - 09/27/2019 10:41 AM PDT | | FLUOROSCOPY C ARM | | | | CLINICAL INFORMATION: | | laminectomy L5-S1 | | | | FINDINGS: | | Fluoro Time: 4 seconds. Number of images: 1 Air Kerma: 2.29 mGy. | | | | IMPRESSION: | | Fluoroscopic service for procedure. | | | | | | | | Signed by: Corinne Lowry, Joseph | | Sign Date/Time: 09/27/2019 10:37 AM | + + + +---------+ + + | Performing | Address | City/State/Zipcode | Phone Number | | Organization | | | | + +---------+ + + | [facility] | | | | + +---------+ + + documented in this encounter Visit Diagnoses + + | Diagnosis | + + | Weakness of lower extremity, unspecified laterality | + + | DDD (degenerative disc [...] musculoskeletal | | systems | + + documented in this encounter Admitting Diagnoses + + | Diagnosis | + [...] laterality | + + documented in this encounter Administered Medications + + + +------+------+------+ | Medication Order | MAR | Action | Dose | Rate | Site | | | Action | Date | | | | + + + +------+------+------+ | balanced electrolytes in water | Continue | 09/27/19 | | | | | (PLASMALYTE-148/NORMOSOL-R) | d by | 20 8:45 | | | | | infusion at 100 mL/hr, | Anesthes | AM PDT | | | | | Intravenous, CONTINUOUS, Starting | ia | | | | | | Kim 09/27/19 at 0900, Pre-op | | | | | | + + + +------+------+------+ +---------+ +---+-------+---+ | New Bag | 09/27/19 | | 100 | | | | 20 8:37 | | mL/hr | | | | AM PDT | | | | +---------+ +---+-------+---+ +---+---+ | | | +---+---+ + +-------+ + +---+---+ | HYDROcodone-acetaminophen | Given | 09/27/19 | 1 tablet | | | | (NORCO) 10-325 mg per tablet 1-2 | | 20 1:19 | | | | | tablet 1-2 tablet, Oral, EVERY 6 | | PM PDT | | | | | HOURS PRN, Pain, Starting Kim | | | | | | | 09/27/19 at 1054, Post-op/Phase II | | | | | | + +-------+ + +---+---+ +-------+ + +---+---+ | Given | 09/27/19 | 1 tablet | | | | | 20 11:02 | | | | | | AM PDT | | | | +-------+ + +---+---+ +---+---+ | | | +---+---+ documented in this encounter
--- OUTSIDE RECORDS SUMMARY | ~2019-12-07 | XMS | Encounter Summary ---
Demographics + + + | Address | [address] | | | [place] [address] | + + + | Home Phone | | + + + | Preferred Language | Unknown | + + + | Marital Status | Single | + + + | Zoroastrianism Affiliation | Unknown | + + + | Race | Unknown | + + + | Ethnic Group | Unknown | + + + Author + + + | Author | [facility] | | | and [place] | + + + | Organization | [facility] | | | and [place] [...] Team Providers + +------+ + | Care Board Turner Name | Role | Phone | + [...] | Neurosurgery | Diagnoses | [place], | [place], | | | | | Other | [...] | | | region | [place], | [address] | | | | | | [place] [address] | Phone: | | | | | | Phone: | [phone] | | | | | | [phone] | Fax: | | | | | | Fax: | [phone] | | | | | | [phone] | | + +--------+ + + + + Encounter Details +--------+ + + + + | Date | Type | Department | Care Team | Description | +--------+ + + + + | 10/10/ | Virtual | [facility] | Rowdy Gutierrez, | Status post | | 2020 | Office | NEUROSURGERY [address] | [address] | laminectomy (Primary | | | Visit | [address] | [address] | Dx); DDD | | | | [place], [place] | [place] [address] | (degenerative disc | | | | [address] | [phone] | disease), lumbar; | | | | [phone] | | Lumbar disc | | | [...] PM Total time (in minutes) including non yruo-gi-woxr time (reviewing records, documentation, etc..) 15 minutes You have chosen to receive care through the use of telemedicine. Telemedicine enables [facility] care providers at different locations to [...] Lin ARNP has created this entry using [employer] and [employer] macros. The entry has been reviewed and there may still exist sound alike word e rrors. documented in this encounter Plan of Treatment +--------+ + + + + | Date | Type | Specialty | Care Team | Description | +--------+ + + + + | 12/23/ | Virtual | Neurosurgery | Rowdy Gutierrez, | | | 2019 | Office | | [address] | | | | Visit | | [address] | | | | | | [place] [address] | | | | | | [phone] | | | | | | | [...]
--- OUTSIDE RECORDS SUMMARY | ~2019-12-07 | XMS | Encounter Summary ---
Demographics + + + | Address | [address] | | | [place] [address] | + + + | Home Phone | | + + + | Preferred Language | Unknown | + + + | Marital Status | Single | + + + | Mandaen Affiliation | Unknown | + + + | Race | Unknown | + + + | Ethnic Group | Unknown | + + + Author + + + | Author | [facility] | | | and [place] | + + + | Organization | [facility] | | | and [...] Team Providers + +------+ + | Care Roving Changer Name | Role | Phone | + [...] | | | | | | | ([facility] | | | | | [...] + + | 09/26/ | Hospital | [facility] | Francisco Cannon DO | Weakness of lower | | 2020 | Encounter | [facility] | [address] | extremity, | | | | CARE FLOOR [address] | unspecified | | | | [address] | [place] [address] | laterality | | | | [place], [place] | [phone] | | | | | [address] | | | | | | [phone] | | | +--------+ + + + [...] by elevating your feet Date Last Reviewed: 2753-9063 [employer]. [address] [place] [address]. All righ ts reserved. This information is not intended as a substitute for professional medical care. Always follow your healthcare professional's instructions. Acetaminophen; Hydrocodone tablets or capsules Brand Names: Anexsia, Lorcet, Lorcet HD, Lorcet Plus, Lortab, [place], Verdrocet, Vicodin, Vi codin ES, Vicodin HP, [...] information carefully each time. Talk to your authorization coordinator regarding the use of this medicine in children. Special care may be needed. What side effects may I notice from receiving this medicine? Side effects that you should report to your doctor or health career services coordinator as soon as p ossible: allergic reactions [...] attention (report to your doctor or health career services coordinator if they continue or are bothersome): constipation [...] to an official disposal site. Contact the COUNTS INCLUDE 234 [facility] AT THE [facility] at or your [facility] to find a site. If you [...] this medicine? Tell your doctor or health career services coordinator if your pain does not go away, [...] | | 2020 | Office | | JAVASCRIPT DEVELOPER [address] | | | | Visit | | [address] | | | | | | [place] [address] | | | | | | [phone] | | | | | | | [...] Essence, | [facility] | | Joseph uSn Date/Time: 09/27/2019 10:37 AM | | + [...]
--- OUTSIDE RECORDS SUMMARY | ~2019-12-07 | XMS | Encounter Summary ---
Demographics + + + | Address | [address] | | | [place] [address] | + + + | Home Phone | | + + + | Preferred Language | Unknown | + + + | Marital Status | Single | + + + | Restoration Affiliation | Unknown | + + + | Race | Unknown | + + + | Ethnic Group | Unknown | + + + Author + + + | Author | [facility] | | | and [place] | + + + | Organization | [facility] | | | and [...] Team Providers + +------+ + | Care Cuff Presser Name | Role | Phone | + +------+ + | Omar Oswald MD | PCP | | + +------+ + Reason for Visit + + + | Reason | Comments | + + + | Insurance | surgery | | Authorization | | + + + Encounter Details +--------+ + + + + | Date | Type | Department | Care Team | Description | +--------+ + + + + | 09/18/ | Telephone | [facility] | Francisco Cannon DO | Insurance | | 2020 | | NEUROSURGERY [address] | [address] | Authorization | | | | [address] | [address] | (surgery) | | | | [place], [place] | [place] [address] | | | | | [address] | [phone] | | | | | [phone] | | | +--------+ + + + [...] | | | | Visit | | [address] | | | | | | [place] [address] | | | | | | [phone] | | | | | | | | +--------+ + + + + documented as of this encounter Visit Diagnoses Not on filedocumented in this encounter"
--- OUTSIDE RECORDS SUMMARY | ~2019-12-07 | XMS | Encounter Summary ---
Demographics + + + | Address | [address] | | | [place] [address] | + + + | Home Phone | | + + + | Preferred Language | Unknown | + + + | Marital Status | Single | + + + | Episcopalian Affiliation | Unknown | + + + | Race | Unknown | + + + | Ethnic Group | Unknown | + + + Author + + + | Author | [facility] | | | and [place] | + + + | Organization | [facility] | | | and [place] [...] Team Providers + +------+ + | Care Social Insurance Specialist Name | Role | Phone | + [...] | | | | | | ([facility]) | | | | | | | [...] + + + + | 09/26/ | Anesthesia | [facility] | Finesse Grissom | | | 2020 | Event [facility] | [address] | | | | | OPERATING ROOM [address] | | | | | [address] | [place] [address] | | | | | [place], [place] | [phone] | | | | | [address] | | | | | | [phone] | | | +--------+ + + + + Anesthesia Record + + + + + | Procedure Name | Responsible | Anesthesia Start | Anesthesia Stop Time | | | Anesthesiologist | Time | | + + + + + | LAMINECTOMY | Finesse Grissom, | 09/27/19 0846 | 09/27/19 1023 | | MINIMALLY INVASIVE | FILM OR VIDEOTAPE EDITOR | | | | L5/S1 Minimally | | | | | invasive lumbar | | | | | laminectomy, medial | | | | | facetectomy, | | | | | foraminotomy and | | | | | possible | | | | | microdiskectomy at | | | | | Lumbar 5 to Sacral | | | | | 1. right sided | | | | | approach for | | | | | bilateral | | | | | decompression (Right | | | | | Spine Lumbar) | | | | + + + + + +----+---+ + + | Da | T | Event | Comment | | te | i | | | | | m | | | | | e | | | +----+---+ + + | 03 | 0 | | | | /1 | 8 | | | | 2/ | 4 | | | | 20 | 1 | | | | 20 | | | | +----+---+ + + | | 0 | An Start | Reassessment prior to anesthesia induction/procedure. | | | 8 | | | | | 4 | | | | | 6 | | | +----+---+ + + | | 0 | Antibiotic | | | | 8 | Given | | | | 4 | | | | | 9 | | | +----+---+ + + | | 0 | An | | | | 8 | Induction | | | | 5 | | | | | 2 | | | +----+---+ + + | | 0 | An | ETT | | | 8 | Intubation | | | | 5 | | | | | 3 | | | +----+---+ + + | | 0 | Quick Note | New IV placed per poor position for previous one | | | 9 | | | | | 0 | | | | | 0 | | | +----+---+ + + | | 0 | Quick Note | prone | | | 9 | | | | | 0 | | | | | 6 | | | +----+---+ + + | | 0 | Anesthesia | | | | 9 | Ready | | | | 0 | | | | | 7 | | | +----+---+ + + | | 0 | Amma | | | | 9 | 43-degrees | | | | 1 | | | | | 5 | | | +----+---+ + + | | 0 | Pre-Procedu | | | | 9 | ral Timeout | | | | 1 | Completed | | | | 6 | | | +----+---+ + + | | 0 | First | | | | 9 | Inc/Proc St | | | | 1 | | | | | 6 | | | +----+---+ + + | | 1 | Breathing | | | | 0 | Spontaneous | | | | 1 | ly | | | | 1 | | | +----+---+ + + | | 1 | Amma off | | | | 0 | | | | | 1 | | | | | 2 | | | +----+---+ + + | | 1 | AN No | TOF 4/4 with sustained tetanus. | | | 0 | Residual | | | | 1 | NMB | | | | 5 | | | +----+---+ + + | | 1 | Extubation/ | | | | 0 | Airway LDA | | | | 2 | Removal | | | | 1 | | | +----+---+ + + | | 1 | an stop | | | | 0 | data | | | | 2 | | | | | 3 | | | +----+---+ + + | | 1 | An Stop | Patient handed off to recovery nurse. | | | 2 | | | | | 3 | | | +----+---+ + + +------+ | Meds | +------+ + +---------+ | Name | Total | + +---------+ | ceFAZolin in dextrose (ANCEF) | 2 g | | IVPB 2 g | | + +---------+ | midazolam 2 mg/mL | 2 mg | + +---------+ | fentaNYL | 100 mcg | + +---------+ | lidocaine 2% | 100 mg | + +---------+ | propofol | 200 mg | + +---------+ | rocuronium | 50 mg | + +---------+ | dexamethasone | 8 mg | + +---------+ | ondansetron | 4 mg | + +---------+ | ketorolac | 30 mg | + +---------+ | neostigmine | 4 mg | + +---------+ | glycopyrrolate | 0.6 mg | + +---------+ | metoprolol | 5 mg | + +---------+ | meperidine | 50 mg | + +---------+ | balanced electrolytes in water | 800 mL | | (PLASMALYTE-148/NORMOSOL-R) | | | infusion | | + +---------+ + + | Name | + + | N2O Flow Rate (L/Min) | + + | O2 Flow Rate (L/Min) | + + | Insp O2 | + + | Exp N2O | + + | Exp SEV | + + | Air Flow Rate (L/Min) | + + + + | No blood administrations on file. | + + +--------+ + + + | Type | Details | Placement | Removal | +--------+ + + + | Wound | 09/27/19; 1044; Incision; back; | 09/27/19 1044 by | | | | skin glue, 1 incision | Dionne Chavira RN | | +--------+ + + + | Periph | 09/27/19; 0839; Left; Forearm; 18 | 09/27/19 0839 by | 09/27/19 1528 by | | michael | gauge; removed per | Fifi Beckett, | Alfonso Bales | | IV | policy/procedure, catheter/device | RN | KATARINA Hodges | | | intact; 09/27/19; 1528 | | | +--------+ + + + | Airway | Placement Date: 09/27/19; | 09/27/19 0853 by | 09/27/19 1022 by | | | Placement Time: 08 (created via | Finesse Grissom, | Finesse Grissom, | | | procedure documentation); Mask | FILM OR VIDEOTAPE EDITOR | FILM OR VIDEOTAPE EDITOR | | | Ventilation: EZ w/OA; Airway | | | | | Grade: 1; Successful Technique: | | | | | Mac; Laryngoscope Blade Size: 4; | | | | | Attempts: 1; Airway Type: | | | | | endotracheal; Size: 7.5; Airway | | | | | Tube Secured At: 23; Trauma: | | | | | none; Other Equipment: stylette; | | | | | Placement Check: exhaled CO2 | | | | | detection device, bilateral chest | | | | | rise, breath sounds equal | | | | | bilaterally; Removal Date: | | | | | 09/27/19; Removal Time: 1022 | | | +--------+ + + + | Periph | 09/27/19; 0900 (created via | 09/27/19 0900 by | 09/27/19 1528 by | | eral | procedure documentation); Left; | Finesse Grissom, | Alfonso Bales | | IV | Mid; Forearm; 18 gauge; removed | FILM OR VIDEOTAPE EDITOR | KATARINA Hodges | | | per policy/procedure, | | | | | catheter/device intact; 09/27/19; | | | | | 1528 | | | +--------+ + + + documented in this encounter Social History + + + +--------+------+ | [...] B | | | | | | [place] [address] | | | | | | [phone] | | | | | | | | +--------+ + + + + documented as of this encounter Procedures + +--------+ + + + | Procedure Name | Priori | Date/Time | Associated Diagnosis | Comments | | | ty | | | | + +--------+ + + + | ANE PERIPHERAL IV | Routin | 09/27/2019 | | Results for this | | LINE NOTE | e | 9:21 AM | | procedure are in the | | | | PDT | | results section. | + +--------+ + + + | ANE AIRWAY NOTE | Routin | 09/27/2019 | | Results for this | | | e | 9:20 AM | | procedure are in the | | | | PDT | | results section. | + +--------+ + + + documented in this encounter Results PIV (09/27/2019 9:21 AM PDT) + + + | Narrative | Performed At | + + + | Finesse Grissom CRNA 09/27/2019 9:21 AM Intravenous | | | Line Placement 09/27/2019 9:00 AM Indication: necessitating | | | physician/FILM OR VIDEOTAPE EDITOR skill Preparation: chlorhexidine/isopropyl alcohol | | | patient was: under GA Side: left Orientation: mid Vein location: | | | forearm Size: 18 g Securement: transparent dressing and tape | | | Placed by: Finesse Grissom CRNA Authorizing provider: Finesse Bradley | | Sabino Grissom CRNA Please see intraoperative grid for any | | | additional medication documentation. | | + + + Airway (09/27/2019 9:20 AM PDT) + + + | Narrative | Performed At | + + + | Finesse Grissom CRNA 09/27/2019 9:21 AM Anesthesia Airway | | | Placement 09/27/2019 8:53 AM Preprocedure check: patient | | | identified, oxygen, airway equipment checked, airway assessed and | | | patient reassessment prior to induction Rapid Sequence Induction: no | | | Mask ventilation: easy with oral airway Successful technique: Mac | | | Laryngoscope blade size: 4 Airway grade: 1 (Full view of glottis) | | | Other equipment: stylette Attempts: 1 Airway type: endotracheal | | | Size: 7.5 Cuffed: cuffed Route, reference point: right side of mouth | | | Tube depth: 23 cm Tube secured with: adhesive tape Trauma: none | | | Tube placement verification: bilateral chest rise, equal bilateral | | | breath sounds and carbon dioxide detection Performing provider: | | | Finesse Grissom CRNA Authorizing provider: Finesse Grissom CRNA | | | Please see intraoperative grid for any additional | | | medication documentation. | | + + + documented in this encounter Visit Diagnoses Not on filedocumented in this encounter Administered Medications + + [...] +---+---+ | | | +---+---+ + +-------+ +-----+---+---+ | ceFAZolin in dextrose (ANCEF) | Given | 09/27/19 | 2 g | | | | IVPB 2 g 2 g, Intravenous, | | 20 8:47 | | | | | Administer over 30 Minutes, Prior | | AM PDT | | | | | to Incision, Starting Kim | | | | | | | 09/27/19 at 0812, For 1 dose, Keep | | | | | | | in refrigerator., Pre-op, | | | | | | | Indications: Surgical Prophylaxis | | | | | | + +-------+ +-----+---+---+ +---+---+ | | | +---+---+ + +-------+ +------+---+---+ | dexamethasone (DECADRON) 4 | Given | 09/27/19 | 8 mg | | | | mg/mL injection Intravenous, | | 20 9:16 | | | | | PRN, Starting Kim 09/27/19 at | | AM PDT | | | | | 0916, Anesthesia Intra-op | | | | | | + +-------+ +------+---+---+ +---+---+ | | | +---+---+ + +-------+ +--------+---+---+ | fentaNYL (PF) injection | Given | 09/27/19 | 50 mcg | | | | Intravenous, PRN, Starting Kim | | 20 9:10 | | | | | 09/27/19 at 0847, Anesthesia | | AM PDT | | | | | Intra-op | | | | | | + +-------+ +--------+---+---+ +-------+ +--------+---+---+ | Given | 09/27/19 | 50 mcg | | | | | 20 8:47 | | | | | | AM PDT | | | | +-------+ +--------+---+---+ +---+---+ | | | +---+---+ + +-------+ +--------+---+---+ | glycopyrrolate (ROBINUL) | Given | 09/27/19 | 0.6 mg | | | | injection Intravenous, PRN, | | 20 10:10 | | | | | Starting Kim 09/27/19 at 1010, | | AM PDT | | | | | Anesthesia Intra-op | | | | | | + +-------+ +--------+---+---+ +---+---+ | | | +---+---+ + +-------+ +-------+---+---+ | ketorolac (TORADOL) injection | Given | 09/27/19 | 30 mg | | | | Intravenous, PRN, Starting Kim | | 20 9:53 | | | | | 09/27/19 at 0953, Anesthesia | | AM PDT | | | | | Intra-op | | | | | | + +-------+ +-------+---+---+ +---+---+ | | | +---+---+ + +-------+ +--------+---+---+ | lidocaine (PF) 2% injection | Given | 09/27/19 | 100 mg | | | | Intravenous, PRN, Starting Kim | | 20 8:52 | | | | | 09/27/19 at 0852, Anesthesia | | AM PDT | | | | | Intra-op | | | | | | + +-------+ +--------+---+---+ +---+---+ | | | +---+---+ + +-------+ +-------+---+---+ | meperidine (DEMEROL) 50 mg/mL | Given | 09/27/19 | 50 mg | | | | injection Intravenous, PRN, | | 20 9:50 | | | | | Starting Kim 09/27/19 at 0950, | | AM PDT | | | | | Anesthesia Intra-op | | | | | | + +-------+ +-------+---+---+ +---+---+ | | | +---+---+ + +-------+ +------+---+---+ | metoprolol tartrate (LOPRESSOR) | Given | 09/27/19 | 1 mg | | | | injection Intravenous, PRN, | | 20 9:43 | | | | | Starting Kim 09/27/19 at 0938, | | AM PDT | | | | | Anesthesia Intra-op | | | | | | + +-------+ +------+---+---+ +-------+ +------+---+---+ | Given | 09/27/19 | 2 mg | | | | | 20 9:41 | | | | | | AM PDT | | | | +-------+ +------+---+---+ | Given | 09/27/19 | 2 mg | | | | | 20 9:38 | | | | | | AM PDT | | | | +-------+ +------+---+---+ +---+---+ | | | +---+---+ + +-------+ +------+---+---+ | midazolam (VERSED) 1 mg/mL | Given | 09/27/19 | 2 mg | | | | injection Intravenous, PRN, | | 20 8:47 | | | | | Starting Kim 09/27/19 at 0847, | | AM PDT | | | | | Anesthesia Intra-op | | | | | | + +-------+ +------+---+---+ +---+---+ | | | +---+---+ + +-------+ +------+---+---+ | neostigmine (BLOXIVERZ) 1 mg/mL | Given | 09/27/19 | 4 mg | | | | injection Intravenous, PRN, | | 20 10:10 | | | | | Starting Kim 09/27/19 at 1010, | | AM PDT | | | | | Anesthesia Intra-op | | | | | | + +-------+ +------+---+---+ +---+---+ | | | +---+---+ + +-------+ +------+---+---+ | ondansetron (ZOFRAN) injection | Given | 09/27/19 | 4 mg | | | | Intravenous, PRN, Starting Kim | | 20 9:16 | | | | | 09/27/19 at 0916, Anesthesia | | AM PDT | | | | | Intra-op | | | | | | + +-------+ +------+---+---+ +---+---+ | | | +---+---+ + +-------+ +-------+---+---+ | propofol (DIPRIVAN) injection | Given | 09/27/19 | 30 mg | | | | Intravenous, PRN, Starting Kim | | 20 9:45 | | | | | 09/27/19 at 0852, Anesthesia | | AM PDT | | | | | Intra-op | | | | | | + +-------+ +-------+---+---+ +-------+ +--------+---+---+ | Given | 09/27/19 | 170 mg | | | | | 20 8:52 | | | | | | AM PDT | | | | +-------+ +--------+---+---+ +---+---+ | | | +---+---+ + +-------+ +-------+---+---+ | rocuronium (ZEMURON) injection | Given | 09/27/19 | 10 mg | | | | Intravenous, PRN, Starting Kim | | 20 9:44 | | | | | 09/27/19 at 0852, Anesthesia | | AM PDT | | | | | Intra-op | | | | | | + +-------+ +-------+---+---+ +-------+ +-------+---+---+ | Given | 09/27/19 | 40 mg | | | | | 20 8:52 | | | | | | AM PDT | | | | +-------+ +-------+---+---+ +---+---+ | | | +---+---+ documented in this encounter"
--- OUTSIDE RECORDS SUMMARY | ~2019-12-07 | XMS | Encounter Summary ---
Demographics + + + | Address | [address] | | | [place] [address] | + + + | Home Phone | | + + + | Preferred Language | Unknown | + + + | Marital Status | Single | + + + | Evangelical Affiliation | Unknown | + + + | Race | Unknown | + + + | Ethnic Group | Unknown | + + + Author + + + | Author | [facility] | | | and [place] | + + + | Organization | [facility] | | | and [...] Team Providers + +------+ + | Care Client Executive Name | Role | Phone | + +------+ + | Omar Oswald MD | PCP | | + +------+ + Encounter Details +--------+ + + + + | Date | Type | Department | Care Team | Description | +--------+ + + + + | 09/18/ | Clinical | [facility] | | DDD (degenerative | | 2020 | Support | NEUROSURGERY [address] | | disc disease), | | | | [address] | | lumbar; Lumbar disc | | | | [place], [place] | | herniation with | | | | [address] | | radiculopathy; | | | | [phone] | | Lumbar facet | | | [...] concerns feel free to call us at [phone]. documented in this encounter Progress Notes Leti [...] of given instruction. Patient [facility] to [facility] for their scheduled pre-admit appointment, anesthesia consult, [...] | | 2019 | Office | | CLERK TO JUSTICE [address] | | | | Visit | | [address] | | | | | | [place] [address] | | | | | | [phone] | | | | | | | [...]
--- OUTSIDE RECORDS SUMMARY | ~2019-12-07 | XMS | Encounter Summary ---
Demographics + + + | Address | [address] | | | [place] [address] | + + + | Home Phone | | + + + | Preferred Language | Unknown | + + + | Marital Status | Single | + + + | Shinto Affiliation | Unknown | + + + | Race | Unknown | + + + | Ethnic Group | Unknown | + + + Author + + + | Author | [facility] | | | and [place] | + + + | Organization | [facility] | | | and [...] Team Providers + +------+ + | Care Refrigerator Assembler Name | Role | Phone | + [...] | | | | | | | (HCC) | | | | | | | [...] +--------+--------+ + + + + Encounter Details +--------+---------+ + + + | Date | Type | Department | Care Team | Description | +--------+---------+ + + + | 09/26/ | Surgery | [facility] | Francisco Cannon DO | LAMINECTOMY | | 2019 | [facility] | [address] | MINIMALLY INVASIVE | | | | OPER[address] RO[address] | [address] | L5/S1 Minimally | | | | [address] | [place] [address] | invasive lumbar | | | | [place], [place] | [phone] | laminectomy, medial | | | | [address] | | facetectomy, | | | | [phone] | | foraminotomy and | | | | | | possible | | | | | | microdiskectomy at | | | | | | Lumbar 5 to Sacral | | | | | | 1. right sided | | | | | | approach for | | | | | | bilateral | | | | | | decompression | +--------+---------+ + + + Social History + + [...] by elevating your feet Date Last Reviewed: 1411-1831 [employer]. [address] [place] [address], [place] [address]. All righ ts reserved. This information is not intended as a substitute for professional medical care. Always follow your healthcare professional's instructions. Acetaminophen; Hydrocodone tablets or capsules Brand Names: Anexsia, Lorcet, Lorcet HD, Lorcet Plus, Lortab, [place], Verdrocet, Vicodin, Vi codin ES, Vicodin HP, [...] information carefully each time. Talk to your patient liaison regarding the use of this medicine in children. Special care may be needed. What side effects may I notice from receiving this medicine? Side effects that you should report to your doctor or health insurance healthcare consultant as soon as p ossible: allergic reactions [...] attention (report to your doctor or health insurance healthcare consultant if they continue or are bothersome): constipation [...] an official disposal site. Contact the [facility] at [phone] or your [facility] government to find a site. If you [...] this medicine? Tell your doctor or health insurance healthcare consultant if your pain does not go away, [...] not take more medicine than directed. [facility] emergency for help if you have problems breathing or unusual sleepiness. Do not take other medicines that contain acetaminophen with this medicine. Always read remedios quesada carefully. If you have questions, ask your [...] | | 2019 | Office | | NURSE PRACTITIONER PER DIEM [address] | | | | Visit | | [address] | | | | | | [place] [address] | | | | | | [phone] | | | | | | | [...] | Fluoroscopic service for procedure. Signed by: Essence | [facility] | | Joseph Sun [...] spondylosis without myelopathy | + + | Weakness of lower extremity, unspecified laterality | + + | Lumbar myelopathy (HCC) [...] + +---+---+ +---+---+ | | | +---+---+ + +-------+ +--------+---+---+ | lidocaine 1% 0.0001 mL, sodium | Given | 09/27/19 | 18 mLs | | | | chloride (PF) 0.9% injection | | 20 10:00 | | | | | 0.0001 mL with bupivacaine | | AM PDT | | | | | (MARCAINE) 0.5% 30 mL, lidocaine | | | | | | | 1%-EPINEPHrine 1:100,000 20 mL | | | | | | | Optesia Mixture PRN, Starting | | | | | | | Kim 09/27/19 at 1000, Intra-op | | | | | | + +-------+ +--------+---+---+ +---+---+ | | | +---+---+ documented in this encounter
--- OUTSIDE RECORDS SUMMARY | ~2019-12-07 | XMS | Clinical Summary ---
Demographics + + + | Address | [address] | | | [place] [address] | + + + | Home Phone | | + + + | Preferred Language | Unknown | + + + | Marital Status | Single | + + + | Rastafari Affiliation | Unknown | + + + | Race | Unknown | + + + | Ethnic Group | Unknown | + + + Author + + + | Author | [facility] | | | and [place] | + + + | Organization | [facility] | | | and [place] [...] Team Providers + +------+ + | Care Founder And Ceo Name | Role | Phone | + +------+ + | Omar Oswald MD | PCP | | + +------+ + Allergies + + + + + + | Active Allergy | Reactions | Severity | Noted | Comments | | | | | Date | | + + + + + + | Codeine | | | 01/05/20 | unknown | | | | | 14 | | + + + + + + Medications No known medications Active Problems + + + | Problem | Noted Date | + + + | Weakness of lower extremity, unspecified laterality | 09/25/2019 | + + + + + | Overview: Added automatically from request for surgery | | [id number] | + + + + + | DDD (degenerative disc disease), lumbar | 09/17/2019 | + + + | Lumbar disc herniation with radiculopathy | 09/17/2019 | + + + | Lumbar facet arthropathy | 09/17/2019 | + + + | Weakness of lower extremity | 09/17/2019 | + + + | Lumbar myelopathy | 09/17/2019 | + + + | Progressive neurological deficit | 09/17/2019 | + + + Encounters +--------+ + + + + | Date | Type | Specialty | Care Team | Description | +--------+ + + + + | 12/03/ | Telephone | Neurosurgery | Francisco Cannon, | Other (Return To | | 2019 | | | | Work Letter) | +--------+ + + + + | 11/11/ | Virtual | Neurosurgery | Rowdy Gutierrez, | Status post | 2019 | Office | | PHYSICIAN OFFICE SPECIALIST | laminectomy (Primary | | | Visit | | | Dx); DDD | | | | | | (degenerative disc | | | | | | disease), lumbar | +--------+ + + + + | 11/11/ | Telephone | Neurosurgery | Rowdy Gutierrez, | Other (schedule ) | 2019 | | | PHYSICIAN OFFICE SPECIALIST | | +--------+ + + + + | 10/10/ | Virtual | Neurosurgery | Rowdy Gutierrez, | Status post | 2019 | Office | | PHYSICIAN OFFICE SPECIALIST | laminectomy (Primary | | | Visit | | | Dx); DDD | | | | | | (degenerative disc | | | | | | disease), lumbar; | | | | | | Lumbar disc | | | | | | herniation with | | | | | | radiculopathy; | | | | | | Lumbar facet | | | | | | arthropathy | +--------+ + + + + | 10/07/ | Telephone | Neurosurgery | Rowdy Gutierrez, | Appointment | | 2019 | | | PHYSICIAN OFFICE SPECIALIST | (Question) | +--------+ + + + + | 09/26/ | Surgery | | Francisco Cannon DO | LAMINECTOMY | | 2019 | | | | MINIMALLY INVASIVE | | | | | | L5/S1 Minimally | | | | | | invasive lumbar | | | | | | laminectomy, medial | | | | | | facetectomy, | | | | | | foraminotomy and [...] | | | | | decompression | +--------+ + + + + | 09/26/ | Anesthesia | | Finesse Grissom | | | 2019 | Event | | [facility] | | +--------+ + + + + | 09/26/ | Hospital | Internal Medicine | Francisco Cannon DO | Weakness of lower | | 2019 | Encounter | | | extremity, | | | | | | unspecified | | | | | | laterality | +--------+ + + + + | 09/24/ | Telephone | Neurosurgery | Francisco Cannon DO | Pre-Op | | 2019 | | | | | +--------+ + + + + | 09/19/ | Telephone | Neurosurgery | Francisco Cannon DO | Medication Question | | 2019 | | | | (Pain) | +--------+ + + + + | 09/18/ | Clinical | Neurosurgery | | DDD (degenerative | 2019 | Support | | | disc disease), | | | | | | lumbar; Lumbar disc | | | | | [...] laterality | +--------+ + + + + | 09/18/ | Telephone | Neurosurgery | Francisco Cannon DO | Insurance | | 2020 | | | | Authorization | | | | | | (surgery) | +--------+ + + + + | 09/16/ | Office | Neurosurgery | Francisco Cannon DO | DDD (degenerative | | 2020 | Visit | | | disc disease), | | | | | | lumbar (Primary Dx); | | | | | | Lumbar disc | | | | | | herniation with | | | | | | radiculopathy; | | | | | | Lumbar facet | | | | | | arthropathy; | | | | | | Weakness of lower | | | | | | extremity, | | | | | | unspecified | | | | | | laterality; Lumbar | | | | | | myelopathy (HCC); | | | | | | Progressive | | | | | | neurological deficit | +--------+ + + + + | 09/11/ | Telephone | Neurosurgery | Francisco Cannon DO | Appointment | | 2020 | | | | | +--------+ + + + + from Last 3 Months Social History + + + +--------+------+ | [...] recent travel history available. | + + Last Filed Vital Signs + + + [...] | | + + + + + Plan of Treatment +--------+ + + + + | Date | Type | Specialty | Care Team | Description | +--------+ + + + + | 12/23/ | Virtual | Neurosurgery | Rowdy Gutierrez, | | | 2019 | Office | | PHYSICIAN OFFICE SPECIALIST [address] | | | | [address] | | [address] | | | | | | [facility] [address] | | | | | | [phone] | | | | | | | | +--------+ + + + + + + + + + | Health Maintenance | Due Date | Last Done | Comments | + + + + + | Vaccine: | | | | | Pneumococcal 19-64 | 0 | | | | (1 of 1 - PPSV23) | | | | + + + + + | Vaccine: Influenza | | 08/06/2017, 09/29/2013 | | | (Season Ended) | 0 | | | + + + + + | Vaccine: | | 06/19/2016 | | | Dtap/Tdap/Td (2 - | 6 | | | | Td) | | | | + + + + + Procedures + +--------+ + + + | Procedure Name | Priori | Date/Time | Associated Diagnosis | Comments | | | ty | | | | + +--------+ + + + | FL C ARM | Routin | 09/27/2019 | | [...] minute | | | s | +---+--------+ from Last 3 Months Results FL C-Arm (09/27/2019 10:15 AM PDT) + + | Specimen | + + | | + + + + + | Impressions | Performed At | + + + | Fluoroscopic service for procedure. Signed by: Essence | [facility] | | Corinne, Hemantder Sign Date/Time: 09/27/2019 10:37 AM | | + [...] | Procedure Note | + + | Adrian, Rad Results In - 09/27/2019 10:41 AM PDT [...] | | | + +---------+ + + PIV (09/27/2019 9:21 AM PDT) + + + | Narrative | Performed At | + + + | Finesse Grissom CRNA 09/27/2019 9:21 AM Intravenous | | | Line Placement 09/27/2019 9:00 AM Indication: necessitating | | | physician/COMMUNITY EDUCATION SPECIALIST skill Preparation: chlorhexidine/isopropyl alcohol | | | patient was: under GA Side: left Orientation: mid Vein location: | | | forearm Size: 18 g Securement: transparent dressing and tape | | | Placed by: Finesse Grissom CRNA Authorizing provider: Finesse | | | Sabino Grissom CRNA Please see [...] Grissom CRNA | | | Please see [facility] for any additional | | | medication documentation. | | + + + from Last 3 Months Insurance + +--------+ +--------+ +---------+--------+ | Payer | Benefi | Subscriber | Effect | Phone | Address | Type | | | t Plan | ID | aly | | | | | | / | | Dates | | | | | | Group | | | | | | + +--------+ +--------+ +---------+--------+ | [employer] | [employer] | [id number] | 07/18/19 | [phone] | | Medica | | MEDICAID HMO | HEALTH | | 14-Pre | 1 | | id | | | MDCD | | sent | | | | | | HMO [place] | | | | | | + +--------+ +--------+ +---------+--------+ | [employer] | [employer] | [id number] | | [phone] | | Medica | | MEDICAID HMO | HEALTH | | 020-Pr | 1 | | id | | | MDCD | | esent | | | | | | HMO [place] | | | | | | + +--------+ +--------+ +---------+--------+ + +--------+ +--------+ + + | Guarantor Name | Accoun | Relation to | Date | Phone | Billing Address | | | t Type | Patient | of | | | | | | | | | | + +--------+ +--------+ + + | Gee Nelson | Person | Self [birth year] | [address] | | | [place] | | 1976 | [phone] | [place] [address] | | | [place]lo | | | 5 (Home) | | + +--------+ +--------+ + + | Gee Nelson | Person | Self | [birth year] | [address] | | | al/[place] | | 1976 | [phone] | [place] [address] | | | [place] | | | 5 (Home) | | + +--------+ +--------+ + + Advance Directives + + + + + | Type | Date Recorded | Patient | Explanation | | | | [place] [employer] | | + + + + + | Power of | | | | | Personal Lines Insurance Advisor | | | | + + + + + | Advance | 09/25/2019 2:47 | | no | | Directive | PM | | | + + + + + + + + + + | Code Status | Date | Date | Comments | | | Activated | Inactivated | | + + + + + | Full Code | 09/27/2019 | 09/27/2019 | | | | 12:44 PM | 7:09 PM | | + + + + +
--- OUTSIDE RECORDS SUMMARY | ~2019-12-07 | XMS | Encounter Summary ---
Demographics + + + | Address | [address] | | | [place] [address] | + + + | Home Phone | | + + + | Preferred Language | Unknown | + + + | Marital Status | Single | + + + | Latter-Day Affiliation | Unknown | + + + | Race | Unknown | + + + | Ethnic Group | Unknown | + + + Author + + + | Author | [facility] | | | and [place] | + + + | Organization | [facility] | | | and [place] [...] Team Providers + +------+ + | Care Padding Gluer Name | Role | Phone | + +------+ + | Omar Oswald MD | PCP | | + +------+ + Reason for Visit +--------+ + | Reason | Comments | +--------+ + | Other | Return To Work Letter | +--------+ + Encounter Details +--------+ + + + + | Date | Type | Department | Care Team | Description | +--------+ + + + + | 12/03/ | Telephone | [facility] | Francisco Cannon DO | Other (Return To | | 2019 | | NEUROSURGERY [address] | Work Letter) | | | | [address] | [address] | | | | | [place], [place] | [place] [address] | | | | | [address] | [phone] | | | | | [phone] | | | +--------+ + + + [...] B | | | | | | [place] [address] | | | | | | [phone] | | | | | | | | +--------+ + + + + documented as of this encounter Visit Diagnoses Not on filedocumented in this encounter"
--- OUTSIDE RECORDS SUMMARY | ~2019-12-07 | XMS | Encounter Summary ---
Demographics + + + | Address | [address] | | | [place] [address] | + + + | Home Phone [...] + + + | Author | [facility] | | | and [place] | + + + | Organization | [facility] | | | and [...] Team Providers + +------+ + | Care Structural Technician Name | Role | Phone | + [...] + + | 11/11/ | Telephone | [facility] | Rowdy Gutierrez, | Other (schedule ) | | 2020 | | NE[address]OS[address]GERY [address] | EMPLOYMENT AGENCY MANAGER [address] | | | | | [address] | [address] | | | | | [place], [place] | [place] [address] | | | | | [address] | [phone] | | | | | [phone] | | | +--------+ + + + [...] B | | | | | | [place] [address] | | | | | | [phone] | | | | | | | | +--------+ + + + + documented as of this encounter Visit Diagnoses Not on filedocumented in this encounter"
--- OUTSIDE RECORDS SUMMARY | ~2019-12-07 | XMS | Encounter Summary ---
Demographics + + + | Address | [address] | | | [place] [address] | + + + | Home Phone | | + + + | Preferred Language | Unknown | + + + | Marital Status | Single | + + + | Baptist Affiliation | Unknown | + + + | Race | Unknown | + + + | Ethnic Group | Unknown | + + + Author + + + | Author | [facility] | | | and [place] | + + + | Organization | [facility] | | | and [place] [...] Team Providers + +------+ + | Care Air Traffic Coordinator Name | Role | Phone | + +------+ + | Omar Oswald MD | PCP | | + +------+ + Reason for Visit Evaluate & Treat (Routine) +--------+--------+ + + + + | Status | Reason | Specialty | Diagnoses / | Referred By | Referred To | | | | | Procedures | Contact | Contact | +--------+--------+ + + + + | Closed | | Neurosurgery | Diagnoses | Darek | Cipriano Oneill | | | | | [place] | MD Omar | Neurosurgery | | | | | intervertebr | [address] | | | | | al disc | NEFT[address]GATE | [address] | | | | | displacement | [address] | | | | | , | [place], | [place] | | | | | lumbosacral | [place] [address] | [address] | | | | | region back | Phone: | Phone: | | | | | | [phone] | [phone] | | | | | | Fax: | Fax: | | | | | | [phone] | [phone] | +--------+--------+ + + + + Encounter Details +--------+---------+ + + + | Date | Type | Department | Care Team | Description | +--------+---------+ + + + | 09/16/ | Office | [facility] | Francisco Cannon DO | DDD (degenerative | | 2020 | Visit | NEUROSURGERY [address] | [address] | disc disease), | | | | [address] | [address] | lumbar (Primary Dx); | | | | [place], [place] | [facility] [place] [place] [address] | Lumbar disc | | | | [address] | [phone] | herniation with | | | | [phone] | | radiculopathy; | | | | [...] | | | | neurological deficit | +--------+---------+ + + + Social History + +-------+ [...] + + + | Blood Pressure | 123/87 | 09/17/2019 2:05 PM | | | | | PST | | + + + + + | Pulse | 88 | 09/17/2019 2:05 PM | | | | | PST | | + + + + + [...] + + + + | Weight | 65.1 kg (143 lb 9.6 | 09/17/2019 2:05 PM | | | | oz) | PST | | + + + + + | Height | - | - | | + + + + + | Body Mass Index | 20.6 | 01/04/2014 1:19 PM | | | | | PDT | | + + + + + documented in this encounter Progress Notes Francisco Cannon DO - 09/17/2019 2:00 PM PST Neurosurgery Clinic Note [facility] Provider: Francisco Cannon, Date : 09/17/2019 2:42 PM Referring Provider: Omar Oswald MD Patient ID 09/17/2019: Gee Nelson is a 43 y.o. 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 twisting and bending patient states that this back pain was worse than his normal chronic back pain is now radiated down his right S1 dermatomal region and increased o adrien time patient seek care including physical therapy which did not improve his pain and act ually made it worse when this failed they obtained an MRI which showed active disc extrusion at L5-S1 with severe compression of the traversing S1 nerve patient was referred to [facility] due to profound and progressive neurologic deficits patient is noticed weakness of his right foot difficulty pushing down walking any distance can only sit for 10 minutes or robinson d for 10 minutes before having severe radiating pain causing him to bend forward to push lelia n or lean on objects or sit and subsequently laid down. Patient has positive shopping cart sign and symptoms interfering with all activities of daily living which are progressive and severe causing profound neurologic deficit Review of Systems: Pertinent items are noted in HPI and if available I personally reviewed independently patient self documented review of systems provided with patient questionnaire filled out in clinic and to be added to patient chart, patient asked if any other symptoms. All other systems are reviewed and are negative History reviewed. No pertinent past medical history. Allergies Allergen Reactions Codeine unknown History reviewed. No pertinent surgical history. History reviewed. No pertinent family history. Vitals 01/04/2014 09/17/2019 SYSTOLIC - 123 DIASTOLIC - 87 Pulse 86 88 Temp 98.7 - Resp 20 - Weight 165 lbs 143 lbs 10 oz Height 5' 10" - SPO2 99 - BMI 23.7 kg/m2 - Social History Socioeconomic History Marital status: Single Spouse name: Not on file Number of children: Not on file Years of education: Not on file Highest education level: Not on file Occupational History Not on file Social Needs Financial resource strain: Not on file Food insecurity: Worry: Not on file Inability: Not on file Transportation needs: Medical: Not on file Non-medical: Not on file Tobacco Use Smoking status: Current Every Day Smoker Packs/day: 0.50 Smokeless tobacco: Former User Substance and Sexual Activity Alcohol use: Not on file Drug use: Not on file Sexual activity: Not on file Lifestyle Physical activity: Days per week: Not on file Minutes per session: Not on file Stress: Not on file Relationships Social connections: Talks on phone: Not on file Gets together: Not on file Attends alevism service: Not on file Active member of club or organization: Not on file Attends meetings of clubs or organizations: Not on file Relationship status: Not on file Intimate partner violence: Fear of current or ex partner: Not on file Emotionally abused: Not on file Physically abused: Not on file Forced sexual activity: Not on file Other Topics Concern Not on file Social History Narrative Not on file Objective PHYSICAL EXAM General: Is in severe discomfort frequently shifting from side to side bending forward push ing down on his knees mainly bending towards his left side avoids extension of his right leg Skin:Skin color, texture, turgor normal. No rashes or lesions. HEENT: Normocephalic atraumatic Chest:Normal symmetric respiratory effort Heart: Normal rate, auscultation defered, Muscle Strength: Right Left Upper Extremity: 5/5 5/5 Lower Extremity: 5/5, plantar 3/5 5/5 Muscle tone: marked atrophy of right calf Back: Paraspinal muscle hypertrophy with thickened musculature and knots, tender to palpat ion. Neuro: Eyes: No gross abnormalities, PERRLA, EOMI, sclera normal Cranial nerves II-XII: intact,no involuntary movements or tremors noted Gait: antalgic wide gait unable to toe stand and toe off with right Sensation:profound lumb ar myelopathy with numbness S1 dermatomal region No results found for: WBC, RBC, HGB, HCT, PLT No results found for: NA, K, CL, CO2, GLUF, BUN, CREATININE, PHOS, MG Medications: Current Outpatient Medications: buPROPion (WELLBUTRIN SR) 150 mg 12 hr tablet, Take 150 mg by mouth 2 times daily., Di sp: , Rfl: Imaging: Internal Imaging Recent XRay Results: No results found. Assessment Orders placed this Encounter: Orders Placed This Encounter Procedures Case Request - OR/ENDO/ASC/OB: LAMINECTOMY MINIMALLY INVASIVE Patient's Medications New Prescriptions No medications on file Modified Medications No medications on file Discontinued Medications No medications on file Assessment and Plan: Gee Nelson is a 43 y.o. male with massive L5/S1 disc herniation with extruded fragme nt in the right lateral recess causing profound and severe progressive neurologic deficit S1 radiculopathy lumbar myelopathy profound weakness with plantar flexion of the foot with int erference in all activities of daily living patient is failed conservative measures regardin g physical therapy medication therapy. The primary encounter diagnosis was DDD (degenerative disc disease), lumbar. Diagnoses of L umbar disc herniation with radiculopathy, Lumbar facet arthropathy, Weakness of lower extrem ity, unspecified laterality, Lumbar myelopathy (HCC), and Progressive neurological deficit w ere also pertinent to this visit. Plan : Risks and Benefits for Minimally Invasive Lumbar Laminectomy Extensive discussion was undertaken regarding risks and benefits with regards to planned s urgical intervention for Minimally invasive lumbar laminectomy, medial facetectomy, foramino сергей and possible microdiskectomy at Five/Sacral one. Right sided approach for bilateral dec ompression, possible adjacent levels. Explained that risks include the risks of general an esthesia with regards to surgical intervention. With lumbar surgical intervention most commo n risks include Bleeding, Infection, and Cerebral Spinal leak with complication incidence an ywhere from 2-5% of cases. Explained that even with perfect surgical technique that complica tions can occur which can be minor and only require more extensive medical treatment or medi cations, or require a return for further surgical intervention. Discussed with patient that with the diagnosis of degenerative arthritis while this surgery is to address the patients c urrent spinal/nerve stenosis that I cannot eliminate the risk of further compression from ad jacent level disease or post operative scar and thus return of symptoms with need for possib le adjacent level surgical intervention and or spinal fusion. With regards to central axial back pain explained that it is unlikely that any surgical intervention will improve general back pain and that back pain can even be worse after intervetion during the healing phase. I ndications for surgical intervention is for decompression of the nerve to prevent further in jury to that nerve and that I cannot guarantee improvement in the damage that has already oc curred. What the means is that if the patient has profound weakness numbness or neurologic d eficits that despite surgery those deficits can persist and sometimes worsen. It is not poss ible for me to forsee all potential adverse outcomes or rare potential complications that ca n be severe leading to permanent injury and possible disability/. No guarantees were gi rogerio. Patient voiced understanding of relative risks and consents for surgical intervention. This case should be classified as urgent due to rapid progression of neurologic deficits ex treme amounts of pain and critical MRI findings showing severe neurologic compression. Due to this rapid progression of pain loss of neurologic function any delay could do damage to t he patient. I have scheduled this intervention on next available Operating room time <1-2 we eks due to the severity of the symptoms. Due to its classification as urgent this should not be considered as an elective procedure and should not face the 14 day prior authorization s chi. Any delay in surgical intervention due to insurance approvals could cause lasting neurologic injury to this patient. Should insurance continue to delay this patients care th ey are financially and legally solely responsible for any further neurologic injury or damag e to the patient. I have adequately listed this intervention is urgent per neurosurgical mally delines and made myself available to do this surgery as soon as possible. Options for conservative measures along with injections were discussed the patient and disc arded due to the fact the patient has a progressive neurologic deficit with profound foot we akness loss of function and inability to work due to severe debilitating back pain. Return for Pending surgical intervention. It is a pleasure being involved in this patients care should any questions or concerns yang e feel free to contact me at any time. Francisco Cannon D.O Board Certified Neurosurgeon / Chief of Neurosurgery [facility] Office Parts of this document have been created with voice recognition software. Although I have p roofread the note, capacitor tester errors may still exist. documented in this enc ounter Plan of Treatment +--------+ + + + + | Date | Type | Specialty | Care Team | Description | +--------+ + + + + | 12/23/ | Virtual | Neurosurgery | Rowdy Gutierrez, | | | 2019 | Office | | OUTSIDE SALES ACCOUNT REPRESENTATIVE [address] | | | | Visit | | [address] | | | | | | [place] [address] | | | | | | [phone] | | | | | | | | +--------+ + + + + + + +--------+ + + | Name | Type | Priori | Associated Diagnoses | Order Schedule | | | | ty | | | + + +--------+ + + | Basic Metabolic | Lab | Routin | DDD (degenerative | 1 Occurrences | | Panel | | e | disc disease), | starting 09/17/2019 | | | | | lumbar Lumbar disc | until 09/16/2020 | | | | | herniation with | | | | | | radiculopathy | | | | | | Lumbar facet | | | | | | arthropathy | | | | | | Weakness Of Lower | | | | | | Extremity, | | | | | | Unspecified | | | | | | Laterality Lumbar | | | | | | myelopathy | | | | | | Progressive | | | | | | neurological deficit | | + + +--------+ + + | CBC with | Lab | Routin | DDD (degenerative | 1 Occurrences | | Differential | | e | disc disease), | starting 09/17/2019 | | | | | lumbar Lumbar disc | until 09/16/2020 | | | | | herniation with | | | | | | radiculopathy | | | | | | Lumbar facet | | | | | | arthropathy | | | | | | Weakness Of Lower | | | | | | Extremity, | | | | | | Unspecified | | | | | | Laterality Lumbar | | | | | | myelopathy | | | | | | Progressive | | | | | | neurological deficit | | + + +--------+ + + | Protime INR | Lab | Routin | DDD (degenerative | 1 Occurrences | | | | e | disc disease), | starting 09/17/2019 | | | | | lumbar Lumbar disc | until 09/16/2020 | | | | | herniation with | | | | | | radiculopathy | | | | | | Lumbar facet | | | | | | arthropathy | | | | | | Weakness Of Lower | | | | | | Extremity, | | | | | | Unspecified | | | | | | Laterality Lumbar | | | | | | myelopathy | | | | | | Progressive | | | | | | neurological deficit | | + + +--------+ + + | PTT | Lab | Routin | DDD (degenerative | 1 Occurrences | | | | e | disc disease), | starting 09/17/2019 | | | | | lumbar Lumbar disc | until 09/16/2020 | | | | | herniation with | | | | | | radiculopathy | | | | | | Lumbar facet | | | | | | arthropathy | | | | | | Weakness Of Lower | | | | | | Extremity, | | | | | | Unspecified | | | | | | Laterality Lumbar | | | | | | myelopathy | | | | | | Progressive | | | | | | neurological deficit | | + + +--------+ + + | MRSA NAAT | Microbiolog | Routin | DDD (degenerative | 1 Occurrences | | | y | e | disc disease), | starting 09/17/2019 | | | | | lumbar Lumbar disc | until 09/16/2020 | | | | | herniation with | | | | | | radiculopathy | | | | | | Lumbar facet | | | | | | arthropathy | | | | | | Weakness Of Lower | | | | | | Extremity, | | | | | | Unspecified | | | | | | Laterality Lumbar | | | | | | myelopathy | | | | | | Progressive | | | | | | neurological deficit | | + + +--------+ + + documented as of this encounter Visit Diagnoses + + | Diagnosis | + + | DDD (degenerative disc disease), lumbar - Primary Degeneration of lumbar or | | lumbosacral intervertebral disc | + + | Lumbar [...]
--- OUTSIDE RECORDS SUMMARY | ~2019-12-07 | XMS | Encounter Summary ---
Demographics + + + | Address | [address] | | | [place] [address] | + + + | Home Phone | | + + + | Preferred Language | Unknown | + + + | Marital Status | Single | + + + | Amish Affiliation | Unknown | + + + | Race | Unknown | + + + | Ethnic Group | Unknown | + + + Author + + + | Author | [facility] | | | and [place] | + + + | Organization | [facility] | | | and [...] Team Providers + +------+ + | Care Sifter And Miller Name | Role | Phone | + [...] | Neurosurgery | Diagnoses | [place], | [place], | | | | | Other | [...] | | | region | [place], | [address] | | | | | | [place] [address] | Phone: | | | | | | Phone: | [phone] | | | | | | [phone] | Fax: | | | | | | Fax: | [phone] | | | | | | [phone] | | + +--------+ + + + + Encounter Details +--------+ + + + + | Date | Type | Department | Care Team | Description | +--------+ + + + + | 04/27/ | Virtual | [facility] | Hira Gutierrezgladis Hutchison, | Status post | | 2020 | Office | NEUROSURGERY [address] | CALCULATING MACHINE OPERATOR [address] | laminectomy (Primary | | | Visit | [address] | [address] | Dx); DDD | | | | [place], [place] | [place] [address] | (degenerative disc | | | | [address] | [phone] | disease), lumbar | | | | [phone] | | | +--------+ + + + [...] of this encounter Progress Notes Rowdy Gutierrez, CALCULATING MACHINE OPERATOR - 11/12/2019 2:40 PM PDTThis exam was initially conducted via a [employer] 256-bit AES encrypted bidirectional video session. Service was provided [id number] with the patient via interactive videoconferencing Video start time 1:49 PM Video end time 2:04 PM Total time (in minutes) including non [id number] time (reviewing records, documentation, etc..) 15 minutes You have chosen to receive care through the use of telemedicine. Telemedicine enables [facility] care providers at different locations to provide [...] where are you physically located right now? [place], [place] Answer: Patient confirms they are located in a state where I, Rowdy C. Matt, CALCULATING MACHINE OPERATOR am lic ensed. Neurosurgery: Post Operative Visit [...] Lin ARNP has created this entry using [employer] macros. The entry has been reviewed and [...] | | | | Visit | | [facility] | | | | | | [place] [address] | | | | | | [phone] | | | | | | | [...]
--- OUTSIDE RECORDS SUMMARY | ~2019-12-07 | XMS | Encounter Summary ---
Demographics + + + | Address | [address] | | | [place] [address] | + + + | Home Phone | | + + + | Preferred Language | Unknown | + + + | Marital Status | Single | + + + | Catholic Affiliation | Unknown | + + + | Race | Unknown | + + + | Ethnic Group | Unknown | + + + Author + + + | Author | [facility] | | | and [place] | + + + | Organization | [facility] | | | and [place] [...] Team Providers + +------+ + | Care Agricultural Specialist Name | Role | Phone | [...] Encounter | [facility] | [address] | | | | | [address] | [place], [place] | | | | | [address] | [address] | | | | | [place] | | | | | | [address] | | | | | | [phone] | | | +--------+ + + + [...] B | | | | | | [place] [address] | | | | | | [phone] | | | | | | | | +--------+ + + + + documented as of this encounter Visit Diagnoses Not on filedocumented in this encounter"
--- OUTSIDE RECORDS SUMMARY | ~2019-12-07 | XMS | Encounter Summary ---
Demographics + + + | Address | [address] | | | [place] [address] | + + + | Home Phone | | + + + | Preferred Language | Unknown | + + + | Marital Status | Single | + + + | Scientology Affiliation | Unknown | + + + | Race | Unknown | + + + | Ethnic Group | Unknown | + + + Author + + + | Author | [facility] | | | and [place] | + + + | Organization | [facility] | | | and [...] Team Providers + +------+ + | Care Director Sports Name | Role | Phone | + [...] + + | 12/03/ | Telephone | [facility] | Francisco Cannon DO | Other (Return To | | 2019 | | NEUROSURGERY [address] | [address] | Work Letter) | | | | [address] | [address] | | | | | [place], [place] | [place] [address] | | | | | [address] | [phone] | | | | | [phone] | | | +--------+ + + + [...] B | | | | | | [place] [address] | | | | | | [phone] | | | | | | | | +--------+ + + + + documented as of this encounter Visit Diagnoses Not on filedocumented in this encounter"
--- OUTSIDE RECORDS SUMMARY | ~2019-12-07 | XMS | Encounter Summary ---
Demographics + + + | Address | [address] | | | [place] [address] | + + + | Home Phone | | + + + | Preferred Language | Unknown | + + + | Marital Status | Single | + + + | Cheondoism Affiliation | Unknown | + + + | Race | Unknown | + + + | Ethnic Group | Unknown | + + + Author + + + | Author | [facility] | | | and [place] | + + + | Organization | [facility] | | | and [place] [...] Providers + +------+ + | Care Manager Relationship Name | Role | Phone | + [...] + + | 09/18/ | Telephone | [facility] | Francisco Cannon DO | Insurance | | 2020 | | NEUROSURGERY [address] | [address] | Authorization | | | | [address] | [address] | (surgery) | | | | [place], [place] | [place] [address] | | | | | [address] | [phone] | | | | | [phone] | | | +--------+ + + + [...] | | | | Visit | | [address] | | | | | | [place] [address] | | | | | | [phone] | | | | | | | | +--------+ + + + + documented as of this encounter Visit Diagnoses Not on filedocumented in this encounter"
--- OUTSIDE RECORDS SUMMARY | ~2019-12-07 | XMS | Encounter Summary ---
Demographics + + + | Address | [address] | | | [place] [address] | + + + | Home Phone | | + + + | Preferred Language | Unknown | + + + | Marital Status | Single | + + + | Evangelical Affiliation | Unknown | + + + | Race | Unknown | + + + | Ethnic Group | Unknown | + + + Author + + + | Author | [facility] | | | and [place] | + + + | Organization | [facility] | | | and [place] | [...] Team Providers + +------+ + | Care Deli Cook Name | Role | Phone | + [...] | | | | | ([facility]) | | | | | [...] + + | 09/26/ | Anesthesia | [facility] | Finesse Grissom | | | 2020 | Event [facility] | FRENCH Gallo [address] | | | | | OPERATING ROOM [address] | | | | | [address] | [place] [address] | | | | | [place], [place] | [phone] | | | | | [address] | | | | | | [phone] | | | +--------+ + + + + Anesthesia Record + + + + + | Procedure Name | Responsible | Anesthesia Start | Anesthesia Stop Time | | | Anesthesiologist | Time | | + + + + + | LAMINECTOMY | Finesse Grissom, | 09/27/19 0846 | 09/27/19 1023 | | MINIMALLY INVASIVE | CLINICAL PARTNER | | | | L5/S1 Minimally | [...] +----+---+ + + | | 0 | Elfrida | | | | 9 | 43-degrees [...] +----+---+ + + | | 1 | Elfrida off | | | | 0 | [...] | | | procedure documentation); Mask | CLINICAL PARTNER | CLINICAL PARTNER | | | Ventilation: EZ w/OA; Airway [...] | Mid; Forearm; 18 gauge; removed | CLINICAL PARTNER | KATARINA Hodges | | | per [...] B | | | | | | [place] [address] | | | | | | [phone] | | | | | | | [...] 9:00 AM Indication: necessitating | | | physician/CLINICAL PARTNER skill Preparation: chlorhexidine/isopropyl alcohol | | | [...]
--- OUTSIDE RECORDS SUMMARY | ~2019-12-07 | XMS | Encounter Summary ---
Demographics + + + | Address | [address] | | | [place] [address] | + + + | Home Phone | | + + + | Preferred Language | Unknown | + + + | Marital Status | Single | + + + | Adventist Affiliation | Unknown | + + + | Race | Unknown | + + + | Ethnic Group | Unknown | + + + Author + + + | Author | [facility] | | | and [place] | + + + | Organization | [facility] | | | and [place] [...] Team Providers + +------+ + | Care Water And Fire Technician Name | Role | Phone | [...] + + | 03/23/ | Telephone | [facility] | Rowdy Gutierrez, | Appointment | | 2020 | | NEUROSURGERY [address] | SCOW CAPTAIN [address] | (Question) | | | | [address] | [address] | | | | | [place], [place] | [place] [address] | | | | | [address] | [phone] | | | | | [phone] | | | +--------+ + + + [...] B | | | | | | [place] [address] | | | | | | [phone] | | | | | | | | +--------+ + + + + documented as of this encounter Visit Diagnoses Not on filedocumented in this encounter"
--- OUTSIDE RECORDS SUMMARY | ~2019-12-07 | XMS | Encounter Summary ---
Demographics + + + | Address | [address] | | | [place] [address] | + + + | Home Phone | | + + + | Preferred Language | Unknown | + + + | Marital Status | Single | + + + | Samaritan Affiliation | Unknown | + + + | Race | Unknown | + + + | Ethnic Group | Unknown | + + + Author + + + | Author | [facility] | | | and [place] | + + + | Organization | [facility] | | | and [place] [...] Team Providers + +------+ + | Care Barn Operator Name | Role | Phone | + [...] + + | // | Telephone | [facility] | Francisco Cannon DO | Medication Question | | 2020 | | NEUROSURGERY [address] | [address] | (Pain) | | | | [address] | [address] | | | | | [place], [place] | [place] [address] | | | | | [address] | [phone] | | | | | [phone] | | | +--------+ + + + [...] | | | | | [place] [address] | | | | | | [phone] | | | | | | | | +--------+ + + + + documented as of this encounter Visit Diagnoses Not on filedocumented in this encounter"
--- OUTSIDE RECORDS SUMMARY | ~2019-12-07 | XMS | Encounter Summary ---
Demographics + + + | Address | [address] | | | [place] [address] | + + + | Home Phone | | + + + | Preferred Language | Unknown | + + + | Marital Status | Single | + + + | Yarsanism Affiliation | Unknown | + + + | Race | Unknown | + + + | Ethnic Group | Unknown | + + + Author + + + | Author | [facility] | | | and [place] | + + + | Organization | [facility] | | | and [place] [...] Team Providers + +------+ + | Care Car Servicer Name | Role | Phone | + [...] | | | | [place] | [place] [address] | [address] | | | | | region back | Phone: | Phone: | | | | | | [phone] | [phone] | | | | | | Fax: | Fax: | | | | | | [phone] | [phone] | +--------+--------+ + + + + Encounter Details +--------+---------+ + + + | Date | Type | Department | Care Team | Description | +--------+---------+ + + + | 09/16/ | Office | [facility] | Francisco Cannon DO | DDD (degenerative | | 2020 | Visit | NEUROSURGERY [address] | [address] | disc disease), | | | | [address] | [address] | lumbar (Primary Dx); | | | | [place], [place] | [facility] [place] [id number] | Lumbar disc | | | | [address] | [phone] | herniation with | | | | [phone] | | radiculopathy; | | | | [...] 09/17/2019 2:00 PM PST Neurosurgery Clinic Note [facility] Provider: Francisco Cannon, Date : [...] 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 Although I have p roofread the note, stonemason helper errors may still exist. documented in this enc ounter Plan of Treatment +--------+ + + + + | Date | Type | Specialty | Care Team | Description | +--------+ + + + + | 12/23/ | Virtual | Neurosurgery | Rowdy Gutierrez, | | | 2019 | Office | | COUNSELLING PSYCHOLOGIST [address] | | | | Visit | | [address] | | | | | | [place] [address] | | | | | | [phone] | | | | | | | [...]
--- OUTSIDE RECORDS SUMMARY | ~2019-12-07 | XMS | Encounter Summary ---
Demographics + + + | Address | [address] | | | [place] [address] | + + + | Home Phone | | + + + | Preferred Language | Unknown | + + + | Marital Status | Single | + + + | Latter-Day Affiliation | Unknown | + + + | Race | Unknown | + + + | Ethnic Group | Unknown | + + + Author + + + | Author | [facility] | | | and [place] | + + + | Organization | [facility] | [...] Team Providers + +------+ + | Care Assistant Boys Track Coach Name | Role | Phone | + +------+ + | Unknown, Practitioner MD | PCP | | + +------+ + Reason for Visit + + + | Reason | Comments | + + + | Wound Check | | + + + Encounter Details +--------+ + + + + | Date | Type | Department | Care Team | Description | +--------+ + + + + | 01/04/ | Emergency | [facility] | Prateek Grissom | Visit for wound | | 2013 | | [facility] | MD Sarbj[address] | check (Primary Dx); | | | | [facility] [address] | [facility] | Encounter for staple | | | | [facility] | [place] [address] | removal | | | | [place], [place] | [phone] | | | | | [address] | | | | | | [phone] | | | +--------+ + + + [...] + + + + | Pulse | 86 | 01/04/2014 1:19 PM | | | | | PDT | | + + + + + | Temperature | 37.1 C (98.7 F) | 01/04/2014 1:19 PM | | | | | PDT | | + + + + + | Respiratory Rate | 20 | 01/04/2014 1:19 PM | | | | | PDT | | + + + + + | Oxygen Saturation | 99% | 01/04/2014 1:19 PM | | | | | PDT | | + + + + + | Inhaled Oxygen | - | - | | | Concentration | | | | + + + + + | Weight | 74.8 kg (165 lb) | 01/04/2014 1:19 PM | | | | | PDT | | + + + + + | Height | 177.8 cm (5' 10") | 01/04/2014 1:19 PM | | | | | PDT | | + + + + + | Body Mass Index | 23.68 | 01/04/2014 1:19 PM | | | | | PDT | | + + + + + documented in this encounter Discharge Instructions Instructions Tye Zee PA - 01/04/2014Thank you for for coming to [facility] for your care today. Please ask your nurse or Tye BRIGGS if you have questions about your care today. Please use any medications given as directed and follow-u p with your doctor (or the doctor you were referred to) as directed. Indications for more ur gent follow-up have been discussed, but you may return to the Emergency Department at ANY ti me with any new or concerning symptoms. Followup with family in 2-3 days for recheck Return back to ER [facility] if noticing any redness, swelling, pain or any other issues Allow Steri-Strips to fall off on own AttachmentsThe following attachments cannot be sent through Care Everywhere.STAPLE REMOVAL, NO COMPLICATION (HUNGARIAN)documented in this encounter Medications at Time of Discharge + + + +---------+--------+ + | Medication | Sig | Dispensed | Refills | Start | End Date | | | | | | Date | | + + + +---------+--------+ + | buPROPion | Take 150 mg by mouth | | 0 | | | | (WELLBUTRIN SR) 150 | 2 times daily. | | | | 0 | | mg 12 hr tablet | | | | | | + + + +---------+--------+ + documented as of this encounter Plan of Treatment +--------+ + + + + | Date | Type | Specialty | Care Team | Description | +--------+ + + + + | 12/23/ | Virtual | Neurosurgery | Rowdy Gutierrez, | | | 2019 | Office | | ELEMENTARY SCHOOL DIRECTOR [address] | | | | Visit | | [address] | | | | | | [place] [address] | | | | | | [phone] | | | | | | | | +--------+ + + + + documented as of this encounter Visit Diagnoses + + | Diagnosis | + + | Visit for wound check - Primary Encounter for other specified aftercare | + + | Encounter for staple removal Encounter for removal of sutures | + + documented in this encounter
--- OUTSIDE RECORDS SUMMARY | ~2019-12-07 | XMS | Encounter Summary ---
Demographics + + + | Address | [address] | | | [place] [address] | + + + | Home Phone | | + + + | Preferred Language | Unknown | + + + | Marital Status | Single | + + + | Uatsdin Affiliation | Unknown | + + + | Race | Unknown | + + + | Ethnic Group | Unknown | + + + Author + + + | Author | [facility] | | | and [place] | + + + | Organization | [facility] | | | and [...] Team Providers + +------+ + | Care Senior Product Integrity Engineer Name | Role | Phone | + [...] + + | 09/26/ | Surgery | [facility] | Francisco Cannon DO | LAMINECTOMY | | 2019 | [facility] | [address] | MINIMALLY INVASIVE | | | | OPER[address] | [address] | L5/S1 Minimally | | | | [address] | [place] [address] | invasive lumbar | | | | [place], [place] | [phone] | laminectomy, medial | | | | [address] | | facetectomy, | | | | [phone] | | foraminotomy and | | | [...] by elevating your feet Date Last Reviewed: 4469-4064 [employer] [address] [place] [address], [place] [address]. All righ ts reserved. This information is not intended as a substitute for professional medical care. Always follow your healthcare professional's instructions. Acetaminophen; Hydrocodone tablets or capsules Brand Names: Anexsia, Lorcet, Lorcet HD, Lorcet Plus, Lortab, Ostrander, Verdrocet, Vicodin, Vi codin ES, Vicodin HP, [...] information carefully each time. Talk to your veneer sander regarding the use of this medicine in children. Special care may be needed. What side effects may I notice from receiving this medicine? Side effects that you should report to your doctor or health child care nurse as soon as p ossible: allergic reactions [...] attention (report to your doctor or health child care nurse if they continue or are bothersome): constipation [...] to an official disposal site. Contact the [facility] at [phone] or your regional medical center/[facility] government to find a site. If [...] this medicine? Tell your doctor or health child care nurse if your pain does not go away, [...] | | 2019 | Office | | SATELLITE SPECIALIST [address] | | | | Visit | | [address] | | | | | | [place] [address] | | | | | | [phone] | | | | | | | [...]
--- OUTSIDE RECORDS SUMMARY | ~2019-12-07 | XMS | Encounter Summary ---
Demographics + + + | Address | [address] | | | [place] [address] | + + + | Home Phone [...] + + + | Author | [facility] | | | and [place] | + + + | Organization | [facility] | | | and [place] [...] Team Providers + +------+ + | Care Gyro Mechanic Name | Role | Phone | + +------+ + PCP | Unavailable | + +------+ + Encounter Details +--------+ + + + + | Date | Type | Department | Care Team | Description | +--------+ + + + + | 01/30/ | Hospital | [facility] | Wicho Maharaj MD | | | 2003 | Encounter | [facility] | [address] [facility] | | | | | EMERGENCY CENTER | [place], [place] | | | | | [address] | [address] | | | | | [place], [place] | [phone] | | | | | [address] | | | | | | [phone] | | | +--------+ + + + [...] B | | | | | | [place] [address] | | | | | | [phone] | | | | | | | | +--------+ + + + + documented as of this encounter Visit Diagnoses Not on filedocumented in this encounter"
--- OUTSIDE RECORDS SUMMARY | ~2019-12-07 | XMS | Encounter Summary ---
Demographics + + + | Address | [address] | | | [place] [address] | + + + | Home Phone | | + + + | Preferred Language | Unknown | + + + | Marital Status | Single | + + + | Sikhism Affiliation | Unknown | + + + | Race | Unknown | + + + | Ethnic Group | Unknown | + + + Author + + + | Author | [facility] | | | and [place] | + + + | Organization | [facility] | | | and [place] [...] Team Providers + +------+ + | Care Window Draper Name | Role | Phone | + [...] check (Primary Dx); | | | | [address] | [facility] | Encounter for staple | | | | [facility] | [place] [address] | removal | | | | [place], [place] | [phone] | | | | | [address] | | | | | | [phone] | | | +--------+ + + + [...] - 01/04/2014Thank you for for coming to [facility] for your care today. Please ask [...] sent through Care Everywhere.STAPLE REMOVAL, NO COMPLICATION (OCCITAN)documented in this encounter Medications at Time of [...] | | 2019 | Office | | INTRANET SUPPORT [address] | | | | Visit | | [employer] [address] | | | | | | [place] [address] | | | | | | [phone] | | | | | | | [...]
--- OUTSIDE RECORDS SUMMARY | ~2019-12-07 | XMS | Clinical Summary ---
Demographics + + + | Address | [address] | | | [place] [address] | + + + | Home Phone | | + + + | Preferred Language | Unknown | + + + | Marital Status | Single | + + + | Worship Affiliation | Unknown | + + + | Race | Unknown | + + + | Ethnic Group | Unknown | + + + Author + + + | Author | [facility] | | | and [place] | + + + | Organization | [facility] | | | and [place] [...] Team Providers + +------+ + | Care Armature [employer] Name | Role | Phone | + [...] automatically from request for surgery | | [id number] | + + + + + | [...] post | 2019 | Office | | SNOWBOARDER | laminectomy (Primary | | | Visit | | | Dx); DDD | | | | | | (degenerative disc | | | | | | disease), lumbar | +--------+ + + + + | 11/11/ | Telephone | Neurosurgery | Rowdy Gutierrez, | Other (schedule ) | 2019 | | | SNOWBOARDER | | +--------+ + + + + | 10/10/ | Virtual | Neurosurgery | Rowdy Gutierrez, | Status post | 2019 | Office | | SNOWBOARDER | laminectomy (Primary | | | Visit [...] Appointment | | 2019 | | | SNOWBOARDER | (Question) | +--------+ + + + [...] 12/23/ | Virtual | Neurosurgery | Rowdy Gutierrze, | | | 2019 | Office | | SNOWBOARDER [address] | | | | [address] | | [address] | | | | | | [facility] [address] | | | | | | [phone] | | | | | | | [...] 9:00 AM Indication: necessitating | | | physician/BUCKLE ASSEMBLER skill Preparation: chlorhexidine/isopropyl alcohol | | | [...] Gr[place] CRNA | | | Please see [facility] for any additional | | | medication [...] | [employer] | MOD[employer] | [id number] | 07/18/19 | [phone] | | Medica | | MEDICAID HMO | HEALTH | | 14-Pre | 1 | | id | | | MDCD | | sent | | | | | | HMO OR | | | | | | + +--------+ +--------+ +---------+--------+ | [employer] | MODA | [id number] | | [phone] | | Medica | | MEDICAID HMO [...] Person | Self | [birth year] | [address] | | | geovanna/Stanley | | 1976 | [phone] | [place] [address] | | | carlo | | | 5 (Home) | | + +--------+ +--------+ + + | Gee Nelson | Person | Self | [birth year] | [address] | | | al/Stanley | | 1976 | [phone] | [place] [address] | | | carlo | | | 5 (Home) | | + +--------+ +--------+ + + Advance Directives + + + + + | Type | Date Recorded | Patient | Explanation | | | | Travel Agent | | + + + + + | Power of | | | | | Director Talent | | | | + + + [...]
--- OUTSIDE RECORDS SUMMARY | ~2019-12-07 | XMS | Encounter Summary ---
Demographics + + + | Address | [address] | | | [place] [address] | + + + | Home Phone | | + + + | Preferred Language | Unknown | + + + | Marital Status | Single | + + + | Moravian Affiliation | Unknown | + + + | Race | Unknown | + + + | Ethnic Group | Unknown | + + + Author + + + | Author | [facility] | | | and [place] | + + + | Organization | [facility] | | | and [place] [...] Team Providers + +------+ + | Care Shank Taper Name | Role | Phone | + +------+ + | Omar Oswald MD | PCP | | + +------+ + Reason for Visit +--------+ + | Reason | Comments | +--------+ + | Pre-Op | | +--------+ + Encounter Details +--------+ + + + + | Date | Type | Department | Care Team | Description | +--------+ + + + + | 09/24/ | Telephone | [facility] | [place], Francisco, DO | Pre-Op | | 2020 | | NEUROSURGERY [address] | [address] | | | | | [address] | [address] | | | | | [place], [place] | [place] [address] | | | | | [address] | [phone] | | | | | [phone] | | | +--------+ + + + [...] | | | | Visit | | [address] | | | | | | [place] [address] | | | | | | [phone] | | | | | | | | +--------+ + + + + documented as of this encounter Visit Diagnoses Not on filedocumented in this encounter"
--- OUTSIDE RECORDS SUMMARY | ~2019-12-07 | XMS | Encounter Summary ---
Demographics + + + | Address | [address] | | | [place] [address] | + + + | Home Phone | | + + + | Preferred Language | Unknown | + + + | Marital Status | Single | + + + | Lutheran Affiliation | Unknown | + + + | Race | Unknown | + + + | Ethnic Group | Unknown | + + + Author + + + | Author | [facility] | | | and [place] | + + + | Organization | [facility] | | | and [...] Team Providers + +------+ + | Care First Aid Officer Name | Role | Phone | + [...] + + | 09/11/ | Telephone | [facility] | Francisco Cannon | Appointment | | 2020 | | NEUROSURGERY [address] | [address] | | | | | [address] | [address] | | | | | [place], [place] | [place] [address] | | | | | [address] | [phone] | | | | | [phone] | | | +--------+ + + + [...] B | | | | | | [place] [address] | | | | | | [phone] | | | | | | | | +--------+ + + + + documented as of this encounter Visit Diagnoses Not on filedocumented in this encounter"
--- OUTSIDE RECORDS SUMMARY | ~2019-12-07 | XMS | Encounter Summary ---
Demographics + + + | Address | [address] | | | [place] [address] | + + + | Home Phone | | + + + | Preferred Language | Unknown | + + + | Marital Status | Single | + + + | Restorationist Affiliation | Unknown | + + + | Race | Unknown | + + + | Ethnic Group | Unknown | + + + Author + + + | Author | [facility] | | | and [place] | + + + | Organization | [facility] | | | and [...] Team Providers + +------+ + | Care Rolling Mill Operator Helper Name | Role | Phone | + [...] + + | 09/24/ | Telephone | [facility] | [place], Francisco, DO | Pre-Op | | 2020 | | NEUROSURGERY [address] | [address] | | | | | [address] | [address] | | | | | [place], [place] | [place] [address] | | | | | [address] | [phone] | | | | | [phone] | | | +--------+ + + + [...] | | | | Visit | | [address] | | | | | | [place] [address] | | | | | | [phone] | | | | | | | | +--------+ + + + + documented as of this encounter Visit Diagnoses Not on filedocumented in this encounter"
== END 2019-12-07 13:28 | disposition home or self-care (01) ==
LOC: ED 02:40
DX: F31.9 Bipolar disorder, unspecified (principal); F10.129 Alcohol abuse with intoxication, unspecified; F17.200 Nicotine dependence, unspecified, uncomplicated; Z88.5 Allergy status to narcotic agent; Z79.899 Other long term (current) drug therapy
CPT/HCPCS: 80053; 80176; 81001; 84443; 85025; 99284; G0480

== ENCOUNTER 2020-05-31 17:59 | Emergency (ER) | payer OTHER ==
[~2020-05-31] VITALS: Ht 177.8 cm; Wt 63.5 kg
[2020-05-31] MEDS ORDERED: BUSPIRONE HCL10 MG PO (18:11)
[2020-05-31] MEDS ORDERED: ZIPRASIDONE HCL40 MG PO (18:11)
== END 2020-06-01 16:35 | disposition home or self-care (01) ==
LOC: ED 17:59
DX: F60.9 Personality disorder, unspecified (principal); F17.200 Nicotine dependence, unspecified, uncomplicated; Z88.5 Allergy status to narcotic agent; Z79.899 Other long term (current) drug therapy
CPT/HCPCS: 80048; 80053; 80176; 81001; 84443; 85025; 99285; G0480

== ENCOUNTER 2020-06-03 12:41 | Inpatient (IN) | payer OTHER ==
[~2020-06-03] VITALS: Ht 177.8 cm; Wt 63.5 kg
[~2020-06-03 12:41] MED LIST changes: +BUSPIRONE HCL10 MG PO; +ZIPRASIDONE HCL40 MG PO
--- OUTSIDE RECORDS SUMMARY | 2020-06-03 12:44 | XMS ---
PreManage Notification: JUAN JOSE Security Feeder Associate Events No recent Security Events currently on file CRITERIA MET - [facility] - 2 Visits in 30 Days CARE PROVIDERS RYAN GREY [facility] 08/29/2019-Current PHONE: [phone] Jefe has no Care Guidelines for this patient. EKrystina VISIT COUNT (12 MO.) 6 [facility] TOTAL 6 NOTE: Visits indicate total known visits. ED/C VISIT TRACKING (12 MO.) 06/03/2020 12:42 [facility] [place] TYPE: Emergency COMPLAINT: - POSSIBLE OVERDOSE 05/31/2020 18:00 [facility] [place] TYPE: Emergency COMPLAINT: - POSSIBLE OVERDOSE DIAGNOSES: - Personality disorder, unspecified - Allergy status to narcotic agent - Other joint terminal attack controller (current) drug therapy - Nicotine dependence, unspecified, uncomplicated 12/07/2019 02:41 [facility] [place] TYPE: Emergency COMPLAINT: - MED CLEARANCE DIAGNOSES: - Nicotine dependence, unspecified, uncomplicated - Bipolar disorder, unspecified - Allergy status to narcotic agent - Bipolar disorder, unspecified - Alcohol abuse with intoxication, unspecified - Other fpc (current) drug therapy 11/06/2019 06:08 [facility] [place] TYPE: Emergency COMPLAINT: - R HAND INJURY DIAGNOSES: - Allergy status to narcotic agent - Nicotine dependence, unspecified, uncomplicated - Exposure to other specified factors, initial encounter - Contusion of right hand, initial encounter - Other joint terminal attack controller (current) drug therapy 09/05/2019 11:38 [facility] [place] TYPE: Emergency COMPLAINT: - BACK PAIN, URINE PROBLEM DIAGNOSES: - Low back pain - Allergy status to narcotic agent - Nicotine dependence, unspecified, uncomplicated - Other intervertebral disc displacement, lumbosacral region 08/28/2019 21:51 [facility] [place] TYPE: Emergency COMPLAINT: - RIGHT LEG PAIN DIAGNOSES: - Sciatica, right side - Other joint terminal attack controller (current) drug therapy - Bipolar disorder, unspecified - Nicotine dependence, unspecified, uncomplicated - Allergy status to narcotic agent - Pain in right leg INPATIENT VISIT TRACKING (12 MO.) No inpatient visits to display in this time frame [email or web address]
--- NOTE | 2020-06-03 16:20 | NUR ---
Report recieved from Blanche BRAY. Pt soiled in bed, thrashing around, reaching for things in the air. Pt given PRN ativan from Blanche BRAY. Pts linens achanges, clothes changed and warm blankets given. Pt began to calm, stopped thrashing and swinging arms. Pt appears to be sleeping, eyes closed, breathing even and unlabored. Some snoring noted, pt raised up in bed. Additional report recieved from Angelique BRAY. Intake assessment complete. Pt remains in ER for assessment awaiting availible room in CCU. Pt unable to give hx. Calm but not cooperative. Response to some touch but remains otherwise obtunded. Bedrails up, seizure pads in place, RNs at bedside.
--- NOTE | 2020-06-03 17:10 | NUR ---
Pt transfered to CCU. Pt transfered to new bed, with 3PA. Pt was wet/soiled again, new linens and depends placed. Pt given new blankets. Side rails up x4, seizure precautions in place with seizure pads on bed. Pt sitting up in bed, semi fowlers, eyes closed, breathing even and unlabored. Pt somewhat responsive to physical stimuli, but pt does not sustain eye-contact. Pts VSS, pt is somewhat anxious with movements to physical stimuli, non aggressive at this time. Pt able to wake to physical stimuli, but unable to make eyecontact. Second IV started in Left forearm by Galilea BRAY. Labs drawn. Pt in bed, side rails up x4 seizure pads in place, bed alarm on, pt visible from nurses station.
[2020-06-03] MEDS ORDERED: ARIPIPRAZOLE10 MG PO (17:15)
[2020-06-03] MEDS ORDERED: HYDROXYZINE HCL50 MG PO (17:16)
[2020-06-03] MEDS ORDERED: MIRTAZAPINE30 MG PO (17:17)
--- NOTE | 2020-06-03 18:07 | NUR ---
Pt admitted for hyponatremia/medication overdose. Pt may have overdosed on wellbutrin medication, but this is not confirmed. Pt was swinging at the air and thrashing in bed when we first arrived in the ED, he was given 1mg of ativan by UMBRELLA FRAME MAKER there and has been less agitated since. Pt was reported to have had auditory and visual hallucinations when he got to the ED. 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 Pt had four doses of ativan in the ED before coming to CCU. Pts oxygen saturations drop when the pt falls asleep/snores. Pt was incontinent of urine twice, depends in place. Pts last sodium lab was 118. Pt has a hx of becoming combative during care, has not been an issue since our time with him this evening.
--- NOTE | 2020-06-03 18:45 | NUR ---
In room for rounding. Pt lying in bed on his left side, eyes closed, breathing even and unlabored.
--- NOTE | 2020-06-03 18:54 | NUR ---
MD CALLED TO ASK IF PT SHOULD HAVE A PIERRE CATHETER AT THIS TIME TO MONITOR QUANTITY OF URINE OUTPUT. MD STATES NOT AT THIS TIME. PT REMAINS RESTING IN BED ON LEFT SIDE. BED RAILS UP AND SEIZURE PADS IN PLACE. BED ALARM ON. PT EASILY VEIWED FORM NURSES STATION.
--- NOTE | 2020-06-03 19:08 | NUR ---
CALLED WITH UPDATE ON PTS SODIUM VALUE FROM RECENT LAB DRAW. STATES TO SALINE LOCK PT AT THIS TIME AND THAT SHE WILL PLACE ADDITIONAL NEW ORDERS SOON. PT'S IV SALINE LOCKED. PT REMAINS RESTING ON LEFT SIDE IN POSITION. VITAL SIGNS STABLE. BED RAILS UP. SEIZURE PADS IN PLACE. BED ALARM ON.
--- NOTE | 2020-06-03 19:45 | NUR ---
PT AGITATED AND GETTING OUT OF BED, WILL OCC TRY TO HIT AT STAFF. FIANLLY VERBALIZED THAT HE NEEDED TO VOID. AFTER MUCH ENCOURAGEMENT WAS ABLE TO VOID IN URINAL. HAD ALSO BEEN INC OF URINE. WAS GIVEN 1MG ATIVAN IV DURING THIS TIME.
--- NOTE | 2020-06-03 20:50 | NUR ---
PT. MOVING IN BED AND NEEDED TO VOID. VOIDED 200ML CLEAR YELLOW URINE IN URINAL. REPOSITIONED AND LEFT RESTING IN BED WITH BED ALARM ON.
--- NOTE | 2020-06-03 21:11 | NUR ---
PT. ASSESSMENT COMPLETED. PT AGITATED AND COMBATIVE. ATIVAN GIVEN BY KATARINA ABRAHAM. ORIENTED TO SELF ONLY. GROSS, JERKING MOVEMENTS WITH STIMULI. LUNG SOUNDS SHALLOW AFTER ATIVAN AND PT. ASLEEP. PT. LEFT RESTING IN BED WITH CURTAIN OPEN AND BED ALARM ON.
--- NOTE | 2020-06-03 22:14 | NUR ---
pt BEGAN MOVING IN BED, KATARINA ABRAHAM AND THIS TEST LEAD APPLICATION TESTING WENT TO ASSIST pt WITH VOID, KATARINA DAVIDSON CAME TO ASSIST FOR pt WAS MAKING JERKING MOVEMENTS WITH LEGS AND ARMS. pt VOIDED 75ccs CLEAR, YELLOW URINE. pt GIVEN WARM BLANKET. BED ALARM ON.
--- NOTE | 2020-06-03 22:24 | NUR ---
pts GIRLFRIEND CALLED FOR AN UPDATE, IS GLAD HES GETTING TAKEN CARE OF, WISHES FOR HIM TO GET HELP.
--- NOTE | 2020-06-03 22:35 | NUR ---
UPDATE GIVEN TO AWA DSOUZA. ADVISED TO CONT WITH BENZODIAZAPINES FOR AGITATION NEEDED.
--- NOTE | 2020-06-03 23:50 | NUR ---
PATIENT SODIUM WAS 131mEq at [address] MAX NOTIFIED. PER ORDER, IV FLUIDS DC'D.
--- NOTE | 2020-06-03 23:52 | NUR ---
PATIENT ASSESSMENT COMPLETED. PATIENT HARD TO AWAKEN. ORIENTED TO SELF AND LESS STARTLED THAN PREVIOUS ASSESSMENT. PT. LEFT RESTING IN BED WITH BED ALARM ON AND CURTAIN OPEN.
--- NOTE | 2020-06-03 23:58 | EKG ---
[facility] [address] [facility] [place] [address] Signed Normal sinus rhythm Left anterior fascicular block Possible Anterior infarct , age undetermined Abnormal ECG No previous ECGs available Confirmed by LASHELL MAX MD ([id number]) on 06/03/2020 11:57:56 PM Electronically Signed By: LASHELL MAX MD 06/03/20 2358 PATIENT NAME: JUAN JOSE CONNOR Electrocardiogram DATE OF : [birth year] PHYSICIAN: LASHELL MAX MD REPORT #: [id number] REPORT IS CONFIDENTIAL AND NOT TO BE RELEASED WITHOUT AUTHORIZATION
--- NOTE | 2020-06-04 00:49 | NUR ---
PATIENT MOVING IN BED AND NEEDED TO VOID. VOIDED 300ML CLEAR YELLOW URINE IN URINAL. PT. MORE ORIENTED TO PLACE AND SELF AND MORE CALM. PT. DENIED PAIN AND STATED HE WAS VERY TIRED. FOLLOWED COMMANDS WELL. LEFT RESTING IN BED WITH ALARM ON AND CURTAIN OPEN.
--- NOTE | 2020-06-04 01:57 | NUR ---
PT HAD COUGHING EPISODE AFTER VOIDING. PT THEN FELL ASLEEP BUT RR INC TO 35 AND SAT DEC TO 88. REPOSITIONED PT. BREATH TONES ARE DIMINISHED THROUGHOUT. DR MAX NOTIFIED AND ORDER RECIEVED FOR CXR. 02 2 L NC APPLIED AND SATS INC TO 95%.
--- NOTE | 2020-06-04 02:10 | NUR ---
CXR COMPLETED. PT SITTING UP STRAIGHTER IN BED. HAD BEEN USING ASSESSORY MUSCLES BUT LESS NOW. STILL HAS OCC HARSH COUGH. RR STILL MID 30 -34. HAD RT ASSESS PT.
--- NOTE | 2020-06-04 05:05 | NUR ---
PATIENT 02 SAT. 100% AND WORK OF BREATHING DECREASED. TITRATED 02 1L NC.
--- NOTE | 2020-06-04 07:30 | NUR ---
REPORT RECIEVED. PATIENT IS RESTFUL IN BED. NO DISTRESS NOTED.
--- NOTE | 2020-06-04 08:15 | NUR ---
DR. MAX HERE TO SEE PATIENT. ORDERS RECIEVED FOR [facility] CONSULT. PATIENT IS COOPERATIVE, FOLLOWING COMMANDS W/O DELAY. PATIENT DENIES TAKING TOO MANY MEDICATIONS YESTERDAY. STATES HE HAD ANXIETY ATTACK REGARDING POSSIBLE MOVE TO ANOTHER STATE WITH HIS GIRLFRIEND. DENIES HEADACHE OR ANY PAIN. ASSESSMENT DONE. O2 TO OFF.
--- NOTE | 2020-06-04 08:30 | NUR ---
AMBULATED TO BR WITH STANDBY ASSIST TO VOID 400 ML OF CLEAR JOZEF URINE. IS FAIRLY STABLE ON FEET. BACK TO BED W/O INCIDENT. BREAKFAST ORDERED.
--- NOTE | 2020-06-04 08:45 | NUR ---
GEODON GIVEN PER MD ORDERS, VISTERIL 50 MG GIVEN FOR MILD ANXIETY.
--- NOTE | 2020-06-04 11:29 | NUR ---
Attempted to see pt earlier and he was sleeping. Called and spoke with Oliva Diaz his so. She is upset and states this is his second attempt in 2 weeks and 4 attempt overall. She wants pt placed as the attempt was in front of her children. He does not use DME. He has ahistory of alcoholism with violence when drinking. She states he stopped drinking in November of this year. Informed [facility] has been called and I will speak with them. Notified I will call her after [facility] assessment.
--- NOTE | 2020-06-04 12:00 | NUR ---
ASSESSMENT DONE. REMAINS COOPERATIVE. TALKATIVE.
--- NOTE | 2020-06-04 12:40 | NUR ---
Notified [facility] pulley worker present to see pt. To CCU and updated to my phone call from Oliva. He will evaluate the pt. and then proceed.
--- NOTE | 2020-06-04 13:30 | NUR ---
[facility] WORKER HERE TO SEE PATIENT, [facility] ALSO TALKED WITH [employer]OVE INSTALLER.
--- NOTE | 2020-06-04 13:56 | NUR ---
Received message from Flor GreenfieldUrbanSitter she is completing 3 day follow up from pts OD from the weekend. Attempted to return her call, message left.
--- NOTE | 2020-06-04 14:03 | NUR ---
Medications reconciled by pharmacy
--- NOTE | 2020-06-04 14:13 | NUR ---
Notified by Anatoly [facility], [place] production utility worker. Pt does not meet criteria for a hold, denies suicide, has slept well. Pt feels he is in a better frame of mind. Anatoly spoke with him and Antonio will go to his parents house for a few days. He is scheduled with Melany Mendez's telepsych and counseling appt with Anatoly Guevara from [facility] tomorrow at 11:00. Anatoly will follow up with Flor Greenfield.
--- NOTE | 2020-06-04 14:30 | NUR ---
[facility] HERE TO SEE PATIENT. SEE HAND WRITTEN NOTE.
--- NOTE | 2020-06-04 15:00 | NUR ---
PT SAYS HE IS FEELING BETTER. Delivery Agent COUNSELOR WAS IN AND HE FEELS AT EASE WITH THEIR CARE. THANKED ME FOR COMING IN. GAVE BLESSING, WILL FOLLOW
--- NOTE | 2020-06-04 16:00 | NUR ---
DR. MAX HERE TO SEE PATIENT, PATIEN WILL BE DISCHARGED THIS AFTERNOON.
--- NOTE | 2020-06-04 16:30 | NUR ---
DISCHARGE INSTRUCTIONS GIVEN. SL DC'D, WITH CATH INTACT.
--- NOTE | 2020-06-04 17:00 | NUR ---
DISCHARGED TO HOME. PATIENT FATHER TAKING PATIENT TO HIS HOUSE.
--- NOTE | 2020-06-05 12:58 | PATH ---
[facility] [address], [place] [address] Signed ORDERING PHYSICIAN: Sreedhar Watson MD PATIENT NAME: JUAN JOSE GENDER: Miranda : 1975 Prior History: No cases found. SPECIMEN(S): MOLECULAR PATHOLOGY RESULTS: SARS-CoV-2 Not Detected ADDITIONAL NOTES.: The [place] Fusion SARS-CoV-2 Assay is a multiplex real-time PCR (RT-PCR) in vitro diagnostic test intended for the qualitative detection of RNA from SARS-CoV-2 from individuals who meet COVID-19 clinical and/or epidemiological criteria. In general, SARS-CoV-2 RNA can be detected during the acute phase of infection. Positive results indicate the presence of SARS-CoV-2 RNA. Clinical correlation with patient history and other diagnostic information is necessary to determine patient infection status. Positive results do not rule out bacterial infection or co-infection with other viruses. Negative results do not preclude SARS-CoV-2 infection and should not be used as the sole basis for patient management decisions. Negative results must be combined with other clinical observations, patient history, and epidemiological information. The [place] Fusion SARS-CoV-2 Assay is not yet approved or cleared by the [place] FDA. When there are no FDA-approved or cleared tests available, and other criteria are met, FDA can make tests available under an emergency access mechanism called an Emergency Use Authorization (EUA). The EUA for this test is supported by the [place] of Health and Human Service's (HHS's) declaration that circumstances exist to justify the emergency use of in vitro diagnostics for the detection and/or diagnosis of the virus that causes COVID-19. This EUA will remain in effect for the duration of the COVID-19 declaration justifying emergency of IVDs, unless it is terminated or revoked by FDA, after which the test may no longer be used. The [place] Fusion SARS-CoV-2 Assay is for use only under EUA PATIENT NAME: JUAN JOSE PATHOLOGY DATE OF : [birth year] REPORT #: [id number] PHYSICIAN: JONATHAN HATHAWAY PCP: RYAN GREY MD REPORT IS CONFIDENTIAL AND NOT TO BE RELEASED WITHOUT AUTHORIZATION [facility] [address] [facility] [place], [place] [address] Signed in [place] laboratories certified under the Clinical Laboratory Improvement Amendments of 1988 (CLIA) to perform high complexity tests. [facility] is certified under CLIA to perform high complexity clinical laboratory testing. Keila Medrano PERFORMING LABORATORY.: Molecular testing was performed by [facility] [place] [address] (Farmworkers: Jose Garrido D.O.; CLIA#: [id number]) Diagnostician: System Interface Pathologist Electronically Signed 06/05/2020 Copies: ~ PATIENT NAME: JUAN JOSE PATHOLOGY DATE OF : [birth year] REPORT #: [id number] PHYSICIAN: JONATHAN HATHAWAY PCP: RYAN GREY MD REPORT IS CONFIDENTIAL AND NOT TO BE RELEASED WITHOUT AUTHORIZATION
== END 2020-06-04 17:03 | disposition home or self-care (01) | DRG 918 ==
LOC: ED 12:41 → CCU 16:13
PROVIDERS: ADMIT Internal Medicine; ATTEND Internal Medicine
DX: T43.292A Poisoning by other antidepressants, intentional self-harm, initial encounter (principal); E22.2 Syndrome of inappropriate secretion of antidiuretic hormone; F31.9 Bipolar disorder, unspecified; R41.82 Altered mental status, unspecified; F17.200 Nicotine dependence, unspecified, uncomplicated; Z79.899 Other long term (current) drug therapy; Z88.5 Allergy status to narcotic agent
CPT/HCPCS: 36415; 71045; 80048; 80053; 80176; 81001; 84443; 85025; 93005; 93010; 96374; 96376; 99285-25; G0480; J2060; J3480; J7030

== ENCOUNTER 2023-02-27 03:52 | Emergency (ER) | payer OTHER | END 2023-02-27 07:07 | disposition home or self-care (01) | LOC: ED 03:52 | DX: F24 Shared psychotic disorder (principal); F15.122 Other stimulant abuse with intoxication with perceptual disturbance; F17.200 Nicotine dependence, unspecified, uncomplicated; Z88.5 Allergy status to narcotic agent ==